=== PATIENT | male | born 1950 | race Caucasian/White ===

== ENCOUNTER → 2024-01-12 12:43 | Outpatient (REF) | payer MEDICARE, OTHER, SELFPAY | LOC: HWRCS 12:43 | PROVIDERS: ATTENDING PHYSICIAN Internal Medicine Cardiovascular Disease; FAMILY PHYSICIAN Family Medicine | DX: I10 Essential (primary) hypertension (principal); Z98.890 Other specified postprocedural states; I48.19 Other persistent atrial fibrillation | CPT/HCPCS: 93306 ==

== ENCOUNTER → 2024-05-01 17:05 | Outpatient (REF) | payer MEDICARE, OTHER, SELFPAY | LOC: HWRAD 17:05 | PROVIDERS: ATTENDING PHYSICIAN Family Medicine | DX: M54.42 Lumbago with sciatica, left side (principal) | CPT/HCPCS: 72110 ==

== ENCOUNTER → 2024-09-18 11:46 | Outpatient (REF) | payer MEDICARE, OTHER, SELFPAY | LOC: HWRAD 11:46 | PROVIDERS: ATTENDING PHYSICIAN Family Medicine | DX: J40 Bronchitis, not specified as acute or chronic (principal) | CPT/HCPCS: 71046 ==

== ENCOUNTER → 2025-01-15 09:46 | Outpatient (REF) | payer MEDICARE, OTHER, SELFPAY | LOC: HWRAD 09:46 | PROVIDERS: ATTENDING PHYSICIAN Family Medicine | DX: N28.1 Cyst of kidney, acquired (principal) | CPT/HCPCS: 74176 ==

== ENCOUNTER → 2025-01-23 06:24 | Outpatient (REF) | payer MEDICARE, OTHER, SELFPAY | LOC: RAD 06:24 | PROVIDERS: ATTENDING PHYSICIAN Family Medicine; REFERRING PHYSICIAN Internal Medicine Cardiovascular Disease | DX: I77.811 Abdominal aortic ectasia (principal) | CPT/HCPCS: 76770 ==

== ENCOUNTER → 2025-03-21 16:17 | Outpatient (REF) | payer MEDICARE, OTHER, SELFPAY | LOC: RAD 16:17 | PROVIDERS: ATTENDING PHYSICIAN Family Medicine | DX: H81.13 Benign paroxysmal vertigo, bilateral (principal) | CPT/HCPCS: 70496; 70498; Q9967 ==

== ENCOUNTER → 2025-04-02 14:52 | Outpatient (REF) | payer MEDICARE, OTHER, SELFPAY | LOC: HWRCS 14:52 | PROVIDERS: ATTENDING PHYSICIAN Internal Medicine Cardiovascular Disease; FAMILY PHYSICIAN Family Medicine | DX: I34.0 Nonrheumatic mitral (valve) insufficiency (principal) | CPT/HCPCS: 93306 ==

== ENCOUNTER 2025-04-13 07:32 | Day surgery (SDC) | payer MEDICARE, OTHER, SELFPAY | END 2025-04-13 10:44 | disposition home or self-care (01) | LOC: CATH 07:32 | PROVIDERS: ATTENDING PHYSICIAN Student in an Organized Health Care Education/Training Program; FAMILY PHYSICIAN Family Medicine; OTHER PHYSICIAN Internal Medicine Cardiovascular Disease | DX: I48.19 Other persistent atrial fibrillation (principal); I08.3 Combined rheumatic disorders of mitral, aortic and tricuspid valves; R91.8 Other nonspecific abnormal finding of lung field; I10 Essential (primary) hypertension; Z79.01 Long term (current) use of anticoagulants; Z79.899 Other long term (current) drug therapy | CPT/HCPCS: 93312; 93320; 93325 ==

== ENCOUNTER 2025-05-04 10:29 | Day surgery (SDC) | payer MEDICARE, OTHER, SELFPAY ==
[2025-05-04] VITALS (8 sets, daily range): BP systolic 123–147; BP diastolic 54–79; BMI 30.3
[2025-05-04] MEDS: LOW STRENGTH ASPIRIN 324 MG PO (11:21)
[2025-05-04] MEDS: NSS 272 ML IV (11:23)
--- NOTE | 2025-05-04 15:22 | ITS.CL.PN ---
Garment Sewer Hand - Procedure Note
Procedure
Procedure Note:
CARDIAC CATHETERIZATION REPORT
Date of Procedure: 05/04/2025
Referring: Dr. Cristopher Porras MD
Indication: pre-operative evaluation ahead of planned mitral valve surgery
PROCEDURE(S)
1. right heart catheterization
2. left heart catheterization
3. coronary angiography
ACCESS:
1. 6F right radial artery (closure: radial band)
2. 5F right brachial vein (closure: manual hemostasis)
CATHETERS
1. 5F balloon wedge
2. 6F JR4
3. 6F JL4
MODERATE SEDATION: 25 minutes of moderate sedation was utilized. An independent medical economics consultant was present to assist with and help manage the patient's level of consciousness and physiologic status.
HEMODYNAMIC DATA
LV 127/3 (EDP 10) mmHg
AO 133/73 (mean 96) mmHg
RA 7 mmHg
RV 37/-1 (EDP 4) mmHg
PA 29/11 (mean 20) mmHg
PCWP 12 mmHg
SaO2 93.9%
SvO2 70.5%
Hb 12.7 g/dL
CO/CI 6.32/3.09 L/min/m2
SVR 1127 dsc*-5
PVR 101 Wood units
CORONARY ANGIOGRAPHY
Dominance: right
LM: large, normal
LAD: large vessel giving rise to a large D1. There is a focal 40% stenosis just after the D1 takeoff. There is otherwise mild diffuse disease.
LCx: large vessel giving rise to a small ramus/OM1, small OM2, large OM3, and several small RPL branches. There are trivial luminal irregularities only.
RCA: moderate caliber vessel giving rise to a moderate caliber RPDA. There is a smooth 30% stenosis in the mid-vessel and otherwise mild disease only.
RADIATION: dose 229 mGy; DAP 14 Gy*cm2; fluoroscopy time 3.2 min
CONCLUSIONS
1. non-obstructive coronary artery disease in a right dominant system
2. normal biventricular filling pressures, normal pulmonary pressure, and normal cardiac index
3. no aortic stenosis on hemodynamic pullback
RECOMMENDATIONS
1. proceed with mitral valve surgery
2. aggressive secondary prevention of coronary artery disease
Copy to: Dr. Liza Mars MD (chemist pharmaceutical); Dr. Cristopher Porras MD (cardiac surgeon)
Signed: Bebo Mills MD, PhD
[2025-05-04] MEDS: NSS 1000 IV (16:05)
== END 2025-05-04 18:11 | disposition home or self-care (01) ==
LOC: CATH 10:29
PROVIDERS: ATTENDING PHYSICIAN Student in an Organized Health Care Education/Training Program; FAMILY PHYSICIAN Family Medicine; OTHER PHYSICIAN Internal Medicine Cardiovascular Disease
DX: I25.10 Atherosclerotic heart disease of native coronary artery without angina pectoris (principal); Z79.01 Long term (current) use of anticoagulants; I34.0 Nonrheumatic mitral (valve) insufficiency; I48.0 Paroxysmal atrial fibrillation; Z79.899 Other long term (current) drug therapy
CPT/HCPCS: 99152; 99153; 93460; C1769; C1894; Q9967

== ENCOUNTER → 2025-05-07 16:04 | Outpatient (REF) | payer MEDICARE, OTHER, SELFPAY | LOC: RAD 16:04 | PROVIDERS: ATTENDING PHYSICIAN Thoracic Surgery (Cardiothoracic Vascular Surgery); FAMILY PHYSICIAN Family Medicine | DX: I34.0 Nonrheumatic mitral (valve) insufficiency (principal) | CPT/HCPCS: 71275; 74174; Q9967 ==

== ENCOUNTER 2025-05-18 05:15 | Inpatient (IN) | payer MEDICARE, OTHER, SELFPAY ==
[2025-05-02 12:24] VITALS: BMI 29.6
[2025-05-02 13:04] LABS: Urine Character Slightly Cloudy (Clear)
[2025-05-02 13:05] LABS: Hematocrit 40.6 % (39.0-52.0); Hemoglobin 13.6 g/dL (13.0-18.0); Mean Corp Hgb Conc. 33.5 g/dL (33.0-37.0); Mean Corpuscular Volume 94.6 fL (80.0-94.0); Nucleated Red Blood Cells % 0 % (-); Platelet Count 140 10^3/uL (130-400); Red Cell Dist. Width 13.9 % (11.5-14.5)
[2025-05-02 13:18] LABS: ALT (SGPT) 29 U/L (0-50); AST (SGOT) 28 U/L (17-59); Albumin 4.6 g/dl (3.5-5.0); Alkaline Phosphatase 37 U/L (38-126); Blood Urea Nitrogen 18 mg/dl (9-20); Calcium 9.6 mg/dl (8.4-10.2); Carbon Dioxide 26 mmol/L (22-30); Chloride 105 mmol/L (98-107); Estimated Creatinine Clearance 70 ml/min; Glucose 89 mg/dl (70-99); INR 1.09; PT 14.7 Sec (11.4-14.6); Potassium 4.3 mmol/L (3.5-5.1); Sodium 140 mmol/L (135-145); Total Protein 7.3 g/dl (6.3-8.2); eGFR > 60.00
[2025-05-02 14:00] LABS: Glycohemoglobin (HgbA1c) 5.2 % (4.0-5.9)
--- NOTE | 2025-05-02 15:23 | CM ---
spoke to pt and in PAT's, we discussed preop MVR restrictions including sternal and lifting restrictions. he is prev indep, lives with his in a ranch home with no steps to enter. he has a CPAP at home he uses nightly and will bring in his
own mask. he has the CT Surgery educ book, soap and instructions. he is agreeable to a f/u visit from the ct transitional care nurses after dc. plan is for MVR 05/18, cm role explained and all questions answered.
[2025-05-18 05:18] VITALS: BP 118/100
[2025-05-18 05:20] VITALS: BP 145/79
[2025-05-18 05:23] VITALS: BP 149/70
[2025-05-18 05:24] VITALS: BP 152/75
[2025-05-18 05:25] VITALS: BMI 29.1
[2025-05-18] MEDS: PROTONIX 40 MG PO (05:43)
[2025-05-18] MEDS: BACTROBAN 2% OINTMENT 1 APPLIC NASAL ×2 (05:43→20:14)
[2025-05-18] MEDS: MAGNESIUM OXIDE 400 MG PO (05:43)
[2025-05-18] MEDS: LOPRESSOR 12.5 MG PO (05:57)
--- NOTE | 2025-05-18 06:02 | W.CVOR.SURPR ---
CVOR Surgeon Immed Pre Op
-
I have examined this patient prior to performance of the scheduled procedure.
The patient's condition is unchanged from the time of the dictated/written History and
Physical and the patient is able to undergo the scheduled procedure.
REDO mitral repair/replacement, MAZE, LAAE
--- NOTE | 2025-05-18 06:04 | PTCARENOTE ---
patient arrived in CVICU for per op SDS with Dr. Porras. Mitral Valve repair or replacement. Patient preped and clipped , CHG wipes bath completed. medications given as ordered for pre op, Ancef sent to CVOR. patient admission assessment completed
and oriented to unit. BP taken in both arms and patient weighted,VSS, NOP since 1900 05/17/2025.
[2025-05-18 07:32] LABS: ACT+ - POC 101 Seconds (82-134)
--- NOTE | 2025-05-18 08:00 | CM ---
Reviewed chart. MR. Flores was in the operating room today. Prior to admission he resides with his spouse in a one story home with three steps to enter. Prior to admission he was independent with ambulation and adls. He has a CPAP Machine at
home.Medical work-up in progress. The discharge plan is to return home with his spouse and a home visit by the Transitional Care Nurse when medically stable.
[2025-05-18 08:16] LABS: Urine Character Clear (Clear)
[2025-05-18 08:24] LABS: Urine Squamous Cell 0-2 /LPF (Few)
[2025-05-18 08:26] LABS: Urine Red Blood Cell 0-2 /HPF (0-2); Urine White Cell 0-2 /HPF (0-5)
[2025-05-18 08:45] LABS: ACT+ - POC 557 Seconds (82-134)
[2025-05-18 09:07] LABS: ACT+ - POC 559 Seconds (82-134)
[2025-05-18 09:39] LABS: ACT+ - POC 546 Seconds (82-134)
[2025-05-18 09:47] LABS: B.E. - POC -1.6 mmol/L; Glucose - POC 94 mg/dl (70-99); HCO3 - POC 24 mmol/L (21-28); Hematocrit - POC 32 % PCV (42-52); Hemodilution- POC No; Hemoglobin Calculated - POC 10.8; Ionized Calcium - POC 1.25 mmol/L (1.15-1.33); Lactate - POC 0.83 mmol/L (0.36-0.75); O2 Saturation %Calculated-POC 99.5 % (94-98); PCO2 - POC 43 mmHg (35-48); PO2 - POC 180 mmHg (83-108); POC Comment PRE; Potassium - POC 3.7 mmol/L (3.5-5.1); Sodium - POC 137 mmol/L (136-145); Specimen Type - POC Arterial; pH - POC 7.36 (7.35-7.45)
[2025-05-18 09:55] LABS: ACT+ - POC 507 Seconds (82-134)
[2025-05-18 10:20] LABS: B.E. - POC 3.1 mmol/L; Glucose - POC 133 mg/dl (70-99); HCO3 - POC 28 mmol/L (21-28); Hematocrit - POC 31 % PCV (42-52); Hemodilution- POC Yes; Hemoglobin Calculated - POC 10.6; Ionized Calcium - POC 1.05 mmol/L (1.15-1.33); Lactate - POC 1.27 mmol/L (0.36-0.75); O2 Saturation %Calculated-POC 100.0 % (94-98); PCO2 - POC 43 mmHg (35-48); PO2 - POC 494 mmHg (83-108); POC Comment CPB; Potassium - POC 4.4 mmol/L (3.5-5.1); Sodium - POC 136 mmol/L (136-145); Specimen Type - POC Arterial; pH - POC 7.42 (7.35-7.45)
[2025-05-18 10:28] LABS: ACT+ - POC 491 Seconds (82-134)
[2025-05-18 10:48] LABS: B.E. - POC 1.0 mmol/L; Glucose - POC 155 mg/dl (70-99); HCO3 - POC 25 mmol/L (21-28); Hematocrit - POC 32 % PCV (42-52); Hemodilution- POC Yes; Hemoglobin Calculated - POC 10.7; Ionized Calcium - POC 1.02 mmol/L (1.15-1.33); Lactate - POC 1.83 mmol/L (0.36-0.75); O2 Saturation %Calculated-POC 100.0 % (94-98); PCO2 - POC 36 mmHg (35-48); PO2 - POC 385 mmHg (83-108); POC Comment CPB; Potassium - POC 5.0 mmol/L (3.5-5.1); Sodium - POC 136 mmol/L (136-145); Specimen Type - POC Arterial; pH - POC 7.45 (7.35-7.45)
[2025-05-18 10:55] LABS: ACT+ - POC 477 Seconds (82-134)
[2025-05-18 11:07] LABS: ACT+ - POC 546 Seconds (82-134)
[2025-05-18 11:16] LABS: B.E. - POC 0.9 mmol/L; Glucose - POC 160 mg/dl (70-99); HCO3 - POC 25 mmol/L (21-28); Hematocrit - POC 33 % PCV (42-52); Hemodilution- POC Yes; Hemoglobin Calculated - POC 11.1; Ionized Calcium - POC 1.08 mmol/L (1.15-1.33); Lactate - POC 1.87 mmol/L (0.36-0.75); O2 Saturation %Calculated-POC 99.9 % (94-98); PCO2 - POC 36 mmHg (35-48); PO2 - POC 273 mmHg (83-108); POC Comment CPB; Potassium - POC 4.0 mmol/L (3.5-5.1); Sodium - POC 138 mmol/L (136-145); Specimen Type - POC Arterial; pH - POC 7.44 (7.35-7.45)
[2025-05-18 11:27] LABS: ACT+ - POC 563 Seconds (82-134)
[2025-05-18 11:50] LABS: B.E. - POC -1.5 mmol/L; Glucose - POC 133 mg/dl (70-99); HCO3 - POC 24 mmol/L (21-28); Hematocrit - POC 33 % PCV (42-52); Hemodilution- POC Yes; Hemoglobin Calculated - POC 11.3; Ionized Calcium - POC 1.12 mmol/L (1.15-1.33); Lactate - POC 2.83 mmol/L (0.36-0.75); O2 Saturation %Calculated-POC 99.9 % (94-98); PCO2 - POC 44 mmHg (35-48); PO2 - POC 318 mmHg (83-108); Potassium - POC 3.3 mmol/L (3.5-5.1); Sodium - POC 141 mmol/L (136-145); Specimen Type - POC Arterial; pH - POC 7.35 (7.35-7.45)
[2025-05-18 11:59] LABS: ACT+ - POC 540 Seconds (82-134)
[2025-05-18 12:25] LABS: B.E. - POC -1.7 mmol/L; Glucose - POC 131 mg/dl (70-99); HCO3 - POC 24 mmol/L (21-28); Hematocrit - POC 30 % PCV (42-52); Hemodilution- POC Yes; Hemoglobin Calculated - POC 10.2; Ionized Calcium - POC 1.09 mmol/L (1.15-1.33); Lactate - POC 3.32 mmol/L (0.36-0.75); O2 Saturation %Calculated-POC 99.9 % (94-98); PCO2 - POC 45 mmHg (35-48); PO2 - POC 357 mmHg (83-108); Potassium - POC 3.4 mmol/L (3.5-5.1); Sodium - POC 141 mmol/L (136-145); Specimen Type - POC Arterial; pH - POC 7.34 (7.35-7.45)
[2025-05-18 12:35] LABS: B.E. - POC -5.0 mmol/L; Glucose - POC 143 mg/dl (70-99); HCO3 - POC 21 mmol/L (21-28); Hematocrit - POC 30 % PCV (42-52); Hemodilution- POC Yes; Hemoglobin Calculated - POC 10.1; Ionized Calcium - POC 1.20 mmol/L (1.15-1.33); Lactate - POC 3.57 mmol/L (0.36-0.75); O2 Saturation %Calculated-POC 84.1 % (94-98); PCO2 - POC 39 mmHg (35-48); PO2 - POC 52 mmHg (83-108); POC Comment POST; Potassium - POC 3.0 mmol/L (3.5-5.1); Sodium - POC 140 mmol/L (136-145); Specimen Type - POC Arterial; pH - POC 7.33 (7.35-7.45)
[2025-05-18 12:42] LABS: ACT+ - POC 115 Seconds (82-134)
--- NOTE | 2025-05-18 13:11 | W.PN.CT.SURG ---
CT Surgery Operative Note
-
CARDIAC SURGERY OPERATIVE REPORT
Preoperative Diagnosis: Recurrent Mitral Regurgitation, Symptomatic
Postoperative Diagnosis: Same
Procedure(s) Performed:
1. Reoperative Right mini thoracotomy with Right Axillary Arterial Cannulation via 8mm graft and Percutaneous Access to RCFV
2. Radical mitral valve re-repair (Explant of prior 32 Ring, Triangular Resection of P2, Implant of 30mm Band Annuloplasty, Placement of 4 Goretex [2 to AL and 2 to PL])
3. Placement temporary ventricular pacing wires
4. Trans esophageal echocardiography
5. Left Atrial Cryo MAZE and LAAE via suture closed
6. Attempted cut down of bilateral groins but unable to thread wire for arterial access and so resorted to axillary cannulation
7. Extensive adhesiolysis, Modifier 22 - added 1 hour to the case
Date of Surgery: 05/18/25
Comorbidities:
1. Previous mitral valve repair with recurrent severe mitral valve insufficiency, symptomatic
2. New paroxysmal atrial relation symptomatic
3. Hypertension
4. Hyperlipidemia
5. Glaucoma
6. Moderately severe pulmonary hypertension
Attending Surgeon: Cristopher Porras MD, MS
Assistants: Marianela Thompson PA-C (present and necessary for retraction, suctioning, exposure, suture management, wound closure, etc. under my direction), Daina Valverde MD, MPH (did portions of the mitral valve repair)
Anesthesiology: Stevie Blue MD and Lucia Mar CRNA
Scrub and Circulating RNs: Lela Ballesteros, RN, Fernando Saavedra RN
Shredder Picker: Paulette Mirza CCP
Anesthesia: GETA
EBL: per perfusion records
Products: None, just Cell Saver
CPB Time: 152 minutes
Aortic Cross Clamp Time: 117 minutes
Indication(s) for Procedures: This is a 74-year-old elevated underwent previous mitral valve repair in 2014. He had recent recurrence of his symptoms and was found to have recurrent mitral valve insufficiency that was severe and was symptomatic.
He also developed into the new atrial relation. He was offered surgical intervention as well as maze and left atrial appendage exclusion.
Mitral Valve Description: Thickening about the anterior posterior leaflets, the anterior leaflet was shortened and scarred towards the free margin. There is also some retracted cords. The posterior leaflet was extremely tall with a billowing P2
that was also thickened.
Implants:
1. 30 mm Alexander physio flex band annuloplasty, SN [id number]
2. Total of 4 CV 4 Vicco-Fredo sutures
3. 1 CV 3 Vicco-Fredo suture
4. Multiple 5-0 Prolene's
Specimen:
1. Old Goretex Chord
Findings: His left ventricular ejection fraction preoperatively 60% with no significant regional wall motion abnormality. He had significant prolapse of the P2 P3 segment with eccentric anterior directed mitral valve insufficiency. The anterior
could also appear to be somewhat restricted and scarred at the free margin and shortened cords. Following surgery his left ventricular ejection fraction was 60% with no new regional wall motion abnormalities. He did have some hypoxia that took
some time to recover from post pump run. He has mitral valve was repaired, modifier 22 here because it required additional hour of dissection time around the aorta and intrapericardial he in order to access the mitral valve. Additionally even
though he had good bilateral cutdowns, I could not access his arteries with the wire easily as it only went in approximately 10 cm. Given this I converted to an axillary cutdown and sewed 8 mm graft to the right axillary artery and instituted
antegrade cardio pulmonary bypass that way. The previous mitral valve ring was explanted, the P2 scallop was resected in a triangular fashion and reapproximated primarily. A total of 4 pairs of Vicco-Fredo sutures were placed with 2 to the anterior
and 2 to the posterior leaflets, a new 30 mm band was then secured into place using a total of 9 nonpledgeted 2 Ethibond sutures placed circumferentially and secured with core knots. A full left atrial ablation was performed using cryo and the left
atrial appendage was sewn shut with CV 3 Vicco-Fredo suture and secured with a single core knot. Of note the left atrial appendage was verified to be free of any thrombus or debris preoperatively and found to be totally occlusive postoperatively with
no residual flow. At the inclusion of the case, there was a trace to mild degree of residual mitral valve insufficiency and a mean gradient of 4 across the mitral valve on the with dobutamine he did become hyperdynamic with a cardiac index of
greater than 3 and the mean gradient did increase to approximately 6. He did not require any blood product. Cardiac index was below 3 on low-dose Dobutrex.
Description of Procedure: The patient was brought to the operating room and placed supine in the table with their right side bumped up and right arm down. Arterial and central access was performed by anesthesiology. The patient was prepped from chin
to toes in the typical sterile fashion. Trans esophageal evaluation of cardiac function and all valvular structures was conducted. Before commencing, a time out was performed by all members of the team. All were in agreement with the procedure and
laterality and I proceeded. A small right groin incision was made to expose the common femoral artery and vein. A 5-6 cm right lateral muscle sparing thoracotomy sweeping the pec major muscle cephalad at the serratus anterior was performed over the
4th intercostal space verified by visualization of the hilum. A total of 60,000units of heparin was given. I initially attempted to cannulate the right common femoral artery using open Seldinger technique however the wire was only able to be
threaded approximately 10 cm and I did not visualize it in the descending thoracic aorta and so this was abandoned. I did cannulate the common femoral vein this way though without any issues using MATIAS guidance. I then cut down the left common
femoral artery and also attempted to cannulate this way again meeting resistance at approxi-10 to 15 cm. I then opted to cut down his right axillary artery and swept his brachial plexus side and placed Vesseloops distally approximately and
performed a small arteriotomy and sewed an 8 mm graft to this artery and used my 19 [place] arterial cannula via the graft for arterial access. The arterial line was verified to have an appropriate bounce and pressure correlating with testing. Once
the ACT was above 400, retrograde autologous priming was done and we commenced cardiopulmonary bypass. Target core temperature was 34�C.
Carbon dioxide was used to flood the field. The course of the phrenic nerve was identified to prevent injury. Ethibond suture was then placed along the parenchyma retracted cephalad and anteriorly. I then incised the pericardium and using an Endo
Kitner as well as electrocautery to free the pericardium from the right atrium. The pericardium was opened and two stay sutures were placed to facilitate a ``pericardial table.�� The oblique sinus was developed followed by the inter atrial groove.
The aorta was fairly scarred in to the pericardium and this was dissected and the posterior and anterior aspects were freed up. I had enough to place the clamp across the aorta. An antegrade root vent was inserted and secured with a pursestring
suture. The pump flow and mean arterial pressure were lowered and an aortic cross clamp was applied to the ascending aorta. A total of 1.2L initial dose of Antegrade cardioplegia was delivered. We had rapid electro myocardial quiescence at 400 cc of
cardioplegia. The ventricle was monitored for distension by echocardiogram during this time. I had to reposition the clamp as I realized that it was not totally occlusive and so additional dissection was then performed while the flows were slightly
lowered for approximately 20 seconds and the clamp was then replaced father across the aorta with better results. Additional cardioplegia was then given to a total of 800 cc with rapidly arrested approximately 150 to 200 cc. The left atrium was
incised and enlarged. A left atrial lift retractor was placed. The mitral valve was inspected. The mitral valve was repaired as described above. A maze was performed using cryo the left atrial appendage was sewn shut. The left atriotomy was closed
with 3-0 prolene in a running fashion leaving a ventricular vent in place to de-air. After filling the heart, the vent was removed and the prolene was secured with a corknot. Unipolar ventricular pacing wire was placed on the base of the right
ventricle. The patient was placed into Trendelenburg position and pump flows were lowered. The clamp was slowly removed with the root vent turned on. De-airing maneuvers were performed. We started to rewarm with a target of 36.5�C.
As the heart recovered, the mitral valve and ventricular function were assessed under transesophageal echocardiogram. The LV vent and root vents were removed. Once weaning parameters were satisfactory, cardiopulmonary bypass flow was lowered until
we were off cardiopulmonary bypass the mitral valve was inspected again. All surgical sites were inspected for hemostasis and appeared appropriate. The root vent and the pericardium was approximated with 2-0 ethibond sutures secured with corknots.
The lines were clamped and the arterial was relocated to the venous cannula to give back volume. A test dose of protamine was delivered and patient was monitored for any adverse reactions followed by complete protamine dosing. The femoral vessels
were decannulated and repaired as indicated. One 19F Jhony drain remained in the pleural space and threaded into the pericardium. All access sites were then closed in multiple layers. Local analgesia was injected to the thoracotomy. The incision
was closed in layers in a running fashion.
All instrument, sponge, and needle counts were confirmed to be correct x 2 at the end of the operation. The patient was transferred to the cardiac intensive care unit in critical but stable condition.
I, Dr. Cristopher Porras, was present, scrubbed for, and performed all critical elements of this procedure.
Cristopher Porras MD, MS
Cardiothoracic Surgeon
[facility]
This dictation was created using the [employer] dictation system. Please excuse any grammatical, typographical, or 'sound alike' errors
[2025-05-18 13:13] LABS: B.E. - POC -5.1 mmol/L; Glucose - POC 135 mg/dl (70-99); HCO3 - POC 21 mmol/L (21-28); Hematocrit - POC 27 % PCV (42-52); Hemodilution- POC Yes; Hemoglobin Calculated - POC 9.3; Ionized Calcium - POC 1.11 mmol/L (1.15-1.33); Lactate - POC 2.94 mmol/L (0.36-0.75); O2 Saturation %Calculated-POC 93.8 % (94-98); PCO2 - POC 40 mmHg (35-48); PO2 - POC 76 mmHg (83-108); POC Comment POST; Potassium - POC 2.8 mmol/L (3.5-5.1); Sodium - POC 140 mmol/L (136-145); Specimen Type - POC Arterial; pH - POC 7.32 (7.35-7.45)
[2025-05-18 13:21] LABS: B.E. - POC -6.2 mmol/L; Glucose - POC 123 mg/dl (70-99); HCO3 - POC 21 mmol/L (21-28); Hematocrit - POC 31 % PCV (42-52); Hemodilution- POC Yes; Hemoglobin Calculated - POC 10.5; Ionized Calcium - POC 1.22 mmol/L (1.15-1.33); Lactate - POC 3.09 mmol/L (0.36-0.75); O2 Saturation %Calculated-POC 99.1 % (94-98); PCO2 - POC 47 mmHg (35-48); PO2 - POC 158 mmHg (83-108); POC Comment POST; Potassium - POC 3.1 mmol/L (3.5-5.1); Sodium - POC 141 mmol/L (136-145); Specimen Type - POC Arterial; pH - POC 7.26 (7.35-7.45)
[2025-05-18 14:01] LABS: Glucose - Point of Care 146 mg/dl (70-99)
--- NOTE | 2025-05-18 14:01 | W.PN.UPDATE ---
Update Note
Progress Note Update
34-year-old male admitted on 05/24/2025 for a redo mitral valve surgery due to severe MR after a mitral valve repair in 2014.
IV fluids: 1000
U.O.:� 600
Blood:� 500cc cell saver
Wires:� V-wire
Drips: Levophed @ 6, Insulin, Precedex
�
NEURO: sedated, pupils +2mm B/L
RESP: #8OT @24cm> 500/60%/14/8. Lungs clear B/L. R pleural (0cc on arrival) chest tubes to -20cm suction. Sanguineous drainage
CV: RRR +S1, S2, no S3, no�rub, no murmur. Dermabond to right anterior thoracotomy, axillary cannulation and B/L femoral attempted cannulation sites. +ecchymosis @ axillary cannulation site>pressure dressing intact. LIJ w/[place] locked @ 58cm. PA
42/17; CVP 5; C.O 5.58/CI 2.67
ABD: round, soft, no BS
EXT: no edema, +2/4 DP pulses B/L, no femoral bruit, XX radial A-line intact
: Hwang with clear yellow urine
�
A/P: POD #0 s/p reoperative right mini thoracotomy with Right Axillary Arterial Cannulation via 8mm graft and Percutaneous Access to RCFV, radical mitral valve re-repair (Explant of prior 32 Ring, Triangular Resection of P2, Implant of 30mm Band
Annuloplasty, Placement of 4 Goretex [2 to AL and 2 to PL]), Left Atrial Cryo MAZE and LAAE via suture closed, extensive adhesiolysis
MAITAS: report pending
- wean and extubate
- will need instruction regarding antibiotic prophylaxis for dental and invasive procedures
- maintain SBP 90-110mmHg tonight
- will need preDC TTE
- insulin x 24h
- pressure dressing to right axiliary cannulation site
�
# acute surgical blood loss anemia-expected
- trend CBC
�
�# Hx PAF
- on Eliquis/ASA/metoprolol at home
- currently SR
# Hx chronic dissection involving infrarenal abdominal aorta
- vascular checks
# Glaucoma
- continue home eye drops
# BPH
- resume Flomax as BP permits
�
# Hyperlipidemia
- resume�Zocor
[2025-05-18] MEDS: LR 250 ML IV ×4 (14:03→18:06)
[2025-05-18] MEDS: DILAUDID 0.5 MG IV ×2 (14:05→17:01)
[2025-05-18] MEDS: ANCEF 10 IV ×2 (14:06)
[2025-05-18] MEDS: NEURONTIN PO ×2 (14:06→16:02)
[2025-05-18] MEDS: NOVOLOG FLEXPEN SC ×2 (14:06→16:21)
[2025-05-18] MEDS: NSS 500 IV (14:07)
[2025-05-18] MEDS: TYLENOL PO ×2 (14:08→22:42)
[2025-05-18 14:11] LABS: B.E. -5.1 mmol/L; HCO3 21.2 mmol/L (21-28); O2 Saturation % 99.0 % (94-98); PCO2 43 mmHg (35-48); PO2 112 mmHg (83-108); Potassium 3.7 mMOL/L (3.5-5.1); Sodium 138 mMOL/L (136-145)
[2025-05-18 14:14] LABS: Hematocrit 36.6 % (39.0-52.0); Hemoglobin 12.2 g/dL (13.0-18.0); Platelet Count 98 10^3/uL (130-400)
[2025-05-18 14:22] LABS: Blood Urea Nitrogen 18 mg/dl (9-20); Estimated Creatinine Clearance 70 ml/min; Glucose 126 mg/dl (70-99); Magnesium 3.0 mg/dl (1.6-2.3)
[2025-05-18 14:24] LABS: APTT 30.8 Sec (23.4-35.0); INR 1.58; PT 19.1 Sec (11.4-14.6)
--- NOTE | 2025-05-18 14:32 | W.PN.CD ---
Today's Communication / Plan
-
routine post op care
Impression / Plan
-
74 year old man with prior MV repair s/p recurrent severe MR now POD0 s/p redo MV repair (Porras: reoperative right mini thoracotomy w/ R ax arterial cannulation, radical mitral valve re-repair (Explant of prior 32 Ring, Triangular Resection of P2,
Implant of 30mm Band Annuloplasty, Placement of 4 Goretex [2 to AL and 2 to PL]), MAZE+JAMES clip). Of note, attempted cut down of bilateral groins but unable to thread wire for arterial access and so resorted to axillary cannulation.
Currently intubated and sedated. Doing well with normal filling pressures and output on norepi 5: PA 42/17, CVP 5, CO/CI 5.58/2.67. PA pressure improved post op.
Plan:
# severe MR s/p redo MV repair
- routine post op care
- wean noerpi for goal SBP goal 90-110 per CTS
- extubate
# Afib
- resume AC when safe from post operative standpoint
# HTN - resume home antihypertensives as able
# HLD - resume home simvastatin
Physical Exam
Vital Signs/Labs
Vital Signs
Temp Pulse Resp BP Pulse Ox
35.3 C L 69 25 118/100 97
05/18/25 14:23 05/18/25 14:15 05/18/25 14:15 05/18/25 05:57 05/18/25 14:15
05/17/25 05/18/25 05/19/25
06:59 06:59 06:59
Actual Weight 89.3 kg
05/18/25 13:53
PT 14.7 Sec (11.4-14.6) H 05/02/25 12:21
INR 1.09 05/02/25 12:21
Magnesium 3.0 mg/dl (1.6-2.3) H 05/18/25 13:53
Physical Exam
Constitutional: Other (intubated and sedated)
Cardiovascular: Rhythm & rate is regular, Pedal edema is absent and Systolic murmur absent
chest wall sites intact
Data Reviewed
-
Date of Service: May 18, 2025
Medical Decision Making: Reviewed Test Results
EKG: Tracing Personally Visualized and interpreted
Echo: Tracing Personally Visualized and interpreted
X-Ray/CT/US/MRI/NUC/PET: Image Personally Visualized and interpreted
Labs: Labs Reviewed by me
--- NOTE | 2025-05-18 14:40 | CON.INTV ---
Consultation
Consultation Request
Date/Time Consultation Requested: 05/18/2025 - 1253
Date/Time Consultation Performed: 05/18/2025 - 2
Requesting Provider: YUMIKO Lamb
Performing Provider: Dr. Deleon
Reason for Consultation: MV re-repair + cryoablation MAZE + ELAA
Medical History
-
Chief Complaint: Elective MV re-repair
History of Present Illness:
74-year-old male with a past medical history of mitral valve regurgitation, paroxysmal A-fib with history of ablation (09/2022) on Eliquis, JUHI on CPAP, hypercholesterolemia, glaucoma, history of colonic mass s/p resection, chronic neck + back pain
and mitral valve repair (April 2015) who presents for elective mitral valve repeat repair. Patient known to the cardiothoracic surgery service with initial visit on 04/30/[address] Porras. Patient underwent sternotomy with mitral valve repair
in 2014. He has since developed recurrent mitral valve insufficiency. Most recent echo was on 04/13/2025 via a MATIAS, showing preserved LVEF at 60-65% with no regional WMA, with moderate�severe, eccentric anteromedially directed mitral regurgitation
with Coanda effect, with systolic blunting of pulmonary venous inflow, with mild AI � findings were similar to prior transthoracic echo on 04/02/2025. Patient had a right and left heart catheterization on 05/04/2025 showing nonobstructive CAD with
normal biventricular filling pressures, preserved cardiac index and normal pulmonary pressures. Also no aortic stenosis on hemodynamic pullback. Patient has moderate fatigue almost daily with moderate shortness of breath with exertion, and
dizziness after bending over. He feels like his breathing has gotten worse over the last year. He does remain active and is independent. Cardiothoracic surgery recommended a repeat repair of his mitral valve as well as a cryoablation maze
procedure and JAMES exclusion. Today, patient underwent reoperative right minithoracotomy with radical mitral valve re� repair with a left atrial cryoablation maze and left atrial appendage exclusion via suture closed as well as extensive
adhesiolysis. There were no complications postoperatively and the patient was transferred to CVICU for further care. Curriculum And Assessment Director service consulted for additional management/recommendations.
When I saw the patient, he was resting in bed, intubated on SIMV at 16/500/60%/5, with PIP 23 cmH2O, VTe 408 mL and breathing at 16 breaths/min. Heart rate 66, BP via A-line: 96/48, PAP 37/15, CO/CI: 5.58/2.67, respectively, with SpO2 98%.
Currently on Levophed at 5 mcg/min, insulin drip at 3.5 units/hr and sedated on Precedex at 0.5 mcg/kg/hr. Right pleural chest tube x [address]
PMHx: Glaucoma, hypercholesterolemia, JUHI on CPAP, history of colonic mass (May 2022) s/p resection (July 2022), aortic regurgitation, chronic neck + back pain, mitral valve repair (April 2015), paroxysmal A-fib s/p ablation (09/2022) on
Eliquis
PSHx: MV repair (Dr. Monsalve � 04/2015), laser eye surgery, vasectomy, right ureteroscopy with laser lithotripsy and stone extraction with placement of right double-J ureteral stent (09/2015), tonsillectomy, colonoscopy, heart ablation (09/2022), colon
mass removed (07/2022), epidural
Past Medical History
Past Medical History: Other (Above as per HPI)
Past Surgical History: Other (Above as per HPI)
Social History
Tobacco: Former Smoker (Quit 1975 with 10-yefu-brac history)
Alcohol: Occasional (Socially (2 beers per week))
Drug: None
Personal:
Living: With Family
Employment: Retired (Fleet maintenance)
Family History
Family History: Cancer (Mother: Colon cancer) and Other (Father: of suicide)
Allergies / Home Medications
Allergies
Allergy/AdvReac Type Severity Reaction Status Date / Time
pollen extracts Allergy seasonal Verified 05/18/25 06:01
allergies
Home Medications
�Medication �Instructions �Recorded �Confirmed �Last Taken �Type
metoprolol tartrate 25 mg tablet 12.5 mg (1/2 x 25 mg) PO BID #60 05/04/15 05/18/25 05/17/25 Rx
tabs 12.5
simvastatin 20 mg tablet 20 mg PO HS High Cholesterol 05/01/25 05/18/25 05/17/25 19:00 History
apixaban 5 mg tablet (Eliquis) 5 mg PO BID Blood clot 05/04/25 05/18/25 05/14/25 Rx
prevention/tx #0 tabs 5
aspirin 81 mg capsule 81 mg PO DAILY Blood clot 05/04/25 05/18/25 05/17/25 Rx
prevention/tx #0 caps 81
brimonidine 0.15 % eye drops 1 drp ophthalmic (eye) Q8H Eye 05/04/25 05/18/25 05/17/25 Rx
(Alphagan P) condition #0 mL 1
cholecalciferol (vitamin D3) 25 25 mcg PO DAILY Supplement #0 caps 05/04/25 05/18/25 05/10/25 10:00 Rx
mcg (1,000 unit) capsule (Vitamin 1
D3)
latanoprost 0.005 % eye drops 1 drp ophthalmic (eye) HS Eye 05/04/25 05/18/25 05/17/25 Rx
condition #0 mL 1
magnesium oxide 400 mg PO DAILY Supplement #0 tabs 05/04/25 05/18/25 05/14/25 Rx
multivitamin 1 tab PO DAILY Supplement #0 tabs 05/04/25 05/18/25 05/10/25 Rx
1
tamsulosin 0.4 mg capsule 0.4 mg PO HS Urinary issue #0 caps 05/04/25 05/18/25 05/04/25 20:00 Rx
zinc acetate 50 mg (zinc) capsule 50 mg PO DAILY Supplement #0 caps 05/04/25 05/18/25 05/10/25 10:00 Rx
Review of Systems
-
Unable to Obtain full review of systems at this time due to: Patient Intubation
Vitals / Labs / Diagnostic Testing
Vital Signs
Temp Pulse Resp BP Pulse Ox
96 F L 66 23 118/100 95
05/18/25 15:00 05/18/25 15:00 05/18/25 15:00 05/18/25 05:57 05/18/25 15:34
Lab Data
05/18/25 13:53
Laboratory Results
05/18/25
13:53
PT 19.1 H
INR 1.58
APTT 30.8
pH 7.30 L
pCO2 43
pO2 112 H
HCO3 21.2
O2 Delivery Level Not Reportable
Diagnostic Testing:
Physical Exam
-
HEENT: Normocephalic, Anicteric and Other (ETT in place)
Cardiovascular: S1/S2 and Peripheral Edema (negative)
Respiratory: Wheeze (negative), Rhonchi (negative), Non-Labored Respirations, Other (Mechanical breath sounds heard bilaterally) and Other (Right pleural chest tube x 1)
GI: Soft, Non Distended, Non Tender and Normal Bowel Sounds
Neurology: Tremors (negative) and Other (Sedated)
Skin: Warm, Dry and Other (Multiple horizontal incisions across the right anterior chest + bilateral femoral regions)
General: Respiratory Distress (negative), Comfortable, Chills (negative) and Sweats (negative)
Assessment
-
Assessment: 74-year-old male with a past medical history of mitral valve regurgitation, paroxysmal A-fib with history of ablation (09/2022) on Eliquis, JUHI on CPAP, hypercholesterolemia, glaucoma, history of colonic mass s/p resection, chronic neck
+ back pain and mitral valve repair (April 2015) who presents for elective mitral valve repeat repair. Patient known to the cardiothoracic surgery service with initial visit on 04/30/[address] Porras. Patient underwent sternotomy with mitral
valve repair in 2014. He has since developed recurrent mitral valve insufficiency. Most recent echo was on 04/13/2025 via a MATIAS, showing preserved LVEF at 60-65% with no regional WMA, with moderate�severe, eccentric anteromedially directed mitral
regurgitation with Coanda effect, with systolic blunting of pulmonary venous inflow, with mild AI � findings were similar to prior transthoracic echo on 04/02/2025. Patient had a right and left heart catheterization on 05/04/2025 showing
nonobstructive CAD with normal biventricular filling pressures, preserved cardiac index and normal pulmonary pressures. Also no aortic stenosis on hemodynamic pullback. Patient has moderate fatigue almost daily with moderate shortness of breath
with exertion, and dizziness after bending over. He feels like his breathing has gotten worse over the last year. He does remain active and is independent. Cardiothoracic surgery recommended a repeat repair of his mitral valve as well as a
cryoablation maze procedure and JAMES exclusion. On 05/18/2025, patient underwent re-operative right mini-thoracotomy with radical mitral valve re�repair with a left atrial cryoablation MAZE and left atrial appendage exclusion via suture closed as
well as extensive adhesiolysis. There were no complications postoperatively and the patient was transferred to CVICU for further care. Curriculum And Assessment Director service consulted for additional management/recommendations.
Chronic conditions FISHER: Glaucoma, hypercholesterolemia, JUHI on CPAP, history of colonic mass (May 2022) s/p resection (July 2022), aortic regurgitation, chronic neck + back pain, mitral valve repair (April 2015), paroxysmal A-fib s/p
ablation (09/2022) on Eliquis
Impression:
#Recurrent symptomatic mitral regurgitation s/p reoperative right minithoracotomy with radical mitral valve re-repair and extensive adhesiolysis � POD #0
#Paroxysmal atrial fibrillation with history of ablation (09/2022) now s/p left atrial cryoablation MAZE and left atrial appendage exclusion via suture closed � POD #0
#Acute anemia due to above
#Chronic thrombocytopenia
#Hypertension
#Hyperlipidemia
#Glaucoma
#Pulmonary hypertension (moderate�severe)
Plan:
Ventilator settings reviewed
FiO2 will be weaned to maintain SpO2 >90-94%
Minute ventilation will be adjusted
Arterial blood gases will be monitored
Spontaneous breathing trial will be attempted with hopeful extubation after anesthesia/sedation wear off
prn nebulized bronchodilators - not currently bronchospastic
Pulmonary artery catheter parameters will be followed
Pressors/antihypertensive/inotropes/diuretics will be provided as needed
Maintain MAP>65
Replete electrolytes with K>4, Mg>2
Monitor chest tube output
Monitor hemoglobin
Monitor platelet count and coags
Transfuse blood products as needed to maintain Hb>7g/dL, plt>50k (given post-operative status)
CT surgery managing chest tubes (right pleural chest tube x 1
Monitor blood sugar to maintain euglycemia with goal BG 110-140
Insulin drip per protocol
Aspiration precautions
VAP prevention protocol
DVT prophylaxis
Early nutrition
Early mobilization
Critical care statement: A total of 42 minutes of critical care time was provided for this patient today. This includes management of ventilator, spontaneous breathing trial, arterial blood gases, pressors, of unstable vital signs, evaluation of the
patient at bedside, reviewing the patient's pertinent medical records including radiographs, microbiology, laboratory evaluations, and discussion with primary team and critical care nursing.
[2025-05-18] MEDS: DILAUDID 0.25 MG IV ×2 (14:48→17:45)
--- NOTE | 2025-05-18 14:57 | PTCARENOTE ---
received pt from [facility] sedated and intubated post procedure. placed on vent by TALENT ACQUISITION SPECIALIST. NSR. V wires present to back up rate 40/10. NSR. HR 60s. CTx1 R lateral to -20 wall suction draining red. no airleaks. Hwang draining clear yellow urine. pulses
palpable no edema. All surgical sites intaact. surg sites on R chest x2 echymottic. Usual lines. labs drawn and sent. ekg and cxr done. will continue to monitor.
[2025-05-18 14:58] LABS: Glucose - Point of Care 160 mg/dl (70-99)
[2025-05-18] MEDS: KCL 50 IV ×2 (15:13→15:59)
[2025-05-18] MEDS: CALCIUM GLUCONATE 100 IV ×2 (15:20→21:15)
--- NOTE | 2025-05-18 15:56 | PTCARENOTE ---
placed on CPAP wean by COIL WINDER REPAIR.
[2025-05-18] MEDS: PACERONE PO (16:16)
[2025-05-18 16:38] LABS: Glucose - Point of Care 132 mg/dl (70-99)
[2025-05-18 16:46] LABS: B.E. -4.8 mmol/L; HCO3 20.5 mmol/L (21-28); O2 Saturation % 99.3 % (94-98); PCO2 38 mmHg (35-48); PO2 102 mmHg (83-108); Potassium 4.4 mMOL/L (3.5-5.1)
[2025-05-18 16:55] LABS: Hematocrit 34.6 % (39.0-52.0); Hemoglobin 11.4 g/dL (13.0-18.0); Platelet Count 93 10^3/uL (130-400)
--- NOTE | 2025-05-18 16:57 | PTCARENOTE ---
extubated to 6Lnc with SERVICE CORRESPONDENT. pulse ox 97%, 750 LR given.
[2025-05-18 17:42] LABS: Glucose - Point of Care 116 mg/dl (70-99)
[2025-05-18 18:07] LABS: Glucose - Point of Care 118 mg/dl (70-99)
[2025-05-18 18:23] LABS: B.E. -5.4 mmol/L; HCO3 20.0 mmol/L (21-28); O2 Saturation % 98.7 % (94-98); PCO2 38 mmHg (35-48); PO2 94 mmHg (83-108); Potassium 5.3 mMOL/L (3.5-5.1); Sodium 136 mMOL/L (136-145)
[2025-05-18] MEDS: SODIUM BICARBONATE 50 MEQ IV (19:19)
--- NOTE | 2025-05-18 20:00 | PTCARENOTE ---
Assumed care of patient at 1900. Patient found resting in bed at time of assessment. Patient is AOx4, follows commands appropriately, moves all extremities. Lung sounds are clear and equal bilaterally, respirations are somewhat shallow, saO2 96% on
2L via NC, R lateral CT present draining red sanguineous to on atrium. Heart sounds are audible, patient is SR on the monitor, no observable edema, all pulses are present and palpable. Patient has v wires with VVI settings 40/10/0.8. Patient has
hypoactive BS throughout all four quadrants of soft nontender abdomen and humphreys catheter draining clear yellow urine. Patient has R upper chest incision approx with surg adhesive with hematoma pressure dressing CDI, R lateral chest incision approx
with surg adhesive COMPOSITION MIXER ecchymotic, R lateral CT wound with 4x4 gauze dressing CDI, and bilateral groin incisions approx with surg adhesive ROMANA ecchymotic around site. L IJ cordis with swan floated to 55cm, L danny, and R hand 20G PIV. Patient on
Levo@4 and insulin gtt col 2. VSS. Call wilcox within reach.
[2025-05-18] MEDS: ANCEF 5 IV (20:13)
[2025-05-18] MEDS: OFIRMEV 100 IV (20:13)
[2025-05-18] MEDS: SENOKOT 8.6 MG PO (20:14)
[2025-05-18 20:38] LABS: B.E. -2.2 mmol/L; HCO3 22.4 mmol/L (21-28); O2 Saturation % 98.2 % (94-98); PCO2 37 mmHg (35-48); PO2 86 mmHg (83-108); Potassium 5.0 mMOL/L (3.5-5.1)
[2025-05-18 20:39] LABS: Glucose - Point of Care 132 mg/dl (70-99)
[2025-05-18 22:39] LABS: Glucose - Point of Care 122 mg/dl (70-99)
[2025-05-18] MEDS: PACERONE 200 MG PO (22:40)
[2025-05-18] MEDS: NEURONTIN 100 MG PO (22:40)
[2025-05-18] MEDS: ROXICODONE 5 MG PO (22:41)
[2025-05-18] MEDS: XALATAN OPHTHALMIC SOLUTION 1 DROP OPHTH (22:43)
[2025-05-18 23:40] LABS: Glucose - Point of Care 112 mg/dl (70-99)
[2025-05-19] VITALS (28 sets, daily range): BP systolic 94–129; BP diastolic 50–88; PULSE 76; O2SAT 91–95; BMI 29.9
--- NOTE | 2025-05-19 | PTCARENOTE ---
Patient reassessed. Remains SR on the monitor. ABG obtained. Calcium repleted. Ofirmev x1, Teresa x1 for pain management. Call wilcox within reach.
[2025-05-19 00:47] LABS: Glucose - Point of Care 114 mg/dl (70-99)
[2025-05-19 01:53] LABS: Glucose - Point of Care 103 mg/dl (70-99)
[2025-05-19] MEDS: LEVOPHED 250 IV (02:00)
[2025-05-19] MEDS: DILAUDID 0.5 MG IV (02:12)
[2025-05-19 03:11] LABS: Glucose - Point of Care 111 mg/dl (70-99)
[2025-05-19 03:29] LABS: Hematocrit 31.3 % (39.0-52.0); Hemoglobin 10.4 g/dL (13.0-18.0); Mean Corp Hgb Conc. 33.2 g/dL (33.0-37.0); Mean Corpuscular Volume 94.3 fL (80.0-94.0); Platelet Count 86 10^3/uL (130-400); Red Cell Dist. Width 13.9 % (11.5-14.5)
[2025-05-19 04:03] LABS: Blood Urea Nitrogen 22 mg/dl (9-20); Calcium 8.6 mg/dl (8.4-10.2); Carbon Dioxide 26 mmol/L (22-30); Chloride 107 mmol/L (98-107); Estimated Creatinine Clearance 70 ml/min; Glucose 103 mg/dl (70-99); Magnesium 2.3 mg/dl (1.6-2.3); Potassium 4.8 mmol/L (3.5-5.1); Sodium 135 mmol/L (135-145); eGFR > 60.00
--- NOTE | 2025-05-19 04:41 | PTCARENOTE ---
Patient reassessed. Levo tapered to 2. AM labs obtained. AM hygiene care provided. Dilaudid 0.25 X1 for pain. EKG in AM showing SR with first deg AV block and PACs. Call wilcox within reach.
[2025-05-19] MEDS: ANCEF 5 IV ×2 (05:03→12:06)
[2025-05-19 05:59] LABS: Glucose - Point of Care 103 mg/dl (70-99)
[2025-05-19] MEDS: TYLENOL 975 MG PO ×3 (06:12→22:48)
[2025-05-19] MEDS: ZOFRAN 4 MG IV (06:20)
[2025-05-19] MEDS: FLEXERIL 5 MG PO (06:43)
--- NOTE | 2025-05-19 07:16 | PTCARENOTE ---
Hwang out. [place] out. Anila to be maintained d/t labile pressures. Attempted oob patient nauseous while sitting giving zofran symptoms resolved. Upon standing patient became dizzy lightheaded low BPs returned to bed. Flexeril administered for muscle
spasms.
[2025-05-19] MEDS: NOVOLOG FLEXPEN SC (07:35)
[2025-05-19 07:39] LABS: Glucose - Point of Care 118 mg/dl (70-99)
--- NOTE | 2025-05-19 08:20 | W.PN.INTV ---
Today's Communication / Plan
Recommendations
Postoperative management as per CT surgery
Removal of right pleural chest tube x 1 per cardiothoracic team
Pain control
Up OOB as tolerated; cardiac rehab
Encourage incentive spirometer
Continue insulin drip per protocol, with goal BG 110�140
Tie Bucker service will continue to follow along. Once patient weaned off insulin drip and transferred to CVICU�telemetry status, then we will sign off at that time.
Assessment
-
Assessment: 74-year-old male with a past medical history of mitral valve regurgitation, paroxysmal A-fib with history of ablation (09/2022) on Eliquis, JUHI on CPAP, hypercholesterolemia, glaucoma, history of colonic mass s/p resection, chronic neck
+ back pain and mitral valve repair (April 2015) who presents for elective mitral valve repeat repair. Patient known to the cardiothoracic surgery service with initial visit on 04/30/[address] Porras. Patient underwent sternotomy with mitral
valve repair in 2014. He has since developed recurrent mitral valve insufficiency. Most recent echo was on 04/13/2025 via a MATIAS, showing preserved LVEF at 60-65% with no regional WMA, with moderate�severe, eccentric anteromedially directed mitral
regurgitation with Coanda effect, with systolic blunting of pulmonary venous inflow, with mild AI � findings were similar to prior transthoracic echo on 04/02/2025. Patient had a right and left heart catheterization on 05/04/2025 showing
nonobstructive CAD with normal biventricular filling pressures, preserved cardiac index and normal pulmonary pressures. Also no aortic stenosis on hemodynamic pullback. Patient has moderate fatigue almost daily with moderate shortness of breath
with exertion, and dizziness after bending over. He feels like his breathing has gotten worse over the last year. He does remain active and is independent. Cardiothoracic surgery recommended a repeat repair of his mitral valve as well as a
cryoablation maze procedure and JAMES exclusion. On 05/18/2025, patient underwent re-operative right mini-thoracotomy with radical mitral valve re�repair with a left atrial cryoablation MAZE and left atrial appendage exclusion via suture closed as
well as extensive adhesiolysis. There were no complications postoperatively and the patient was transferred to CVICU for further care. Tie Bucker service consulted for additional management/recommendations.
Chronic conditions CRIMINAL LEGAL ASSISTANT: Glaucoma, hypercholesterolemia, JUHI on CPAP, history of colonic mass (May 2022) s/p resection (July 2022), aortic regurgitation, chronic neck + back pain, mitral valve repair (April 2015), paroxysmal A-fib s/p
ablation (09/2022) on Eliquis
Impression:
#Recurrent symptomatic mitral regurgitation s/p reoperative right minithoracotomy with radical mitral valve re-repair and extensive adhesiolysis � POD #1
#Paroxysmal atrial fibrillation with history of ablation (09/2022) now s/p left atrial cryoablation MAZE and left atrial appendage exclusion via suture closed � POD #1
#Acute anemia due to above
#Chronic thrombocytopenia
#Hypertension
#Hyperlipidemia
#Glaucoma
#Pulmonary hypertension (moderate�severe)
Plan:
Patient was successfully extubated on 05/18/2025, and is now breathing comfortably on 2 L/min nasal cannula, saturating 89-90%
Continue wean down supplemental O2 as tolerated while maintaining SpO2 >90-94%
prn nebulized bronchodilators - not currently bronchospastic
Encourage incentive spirometer use q1hr while awake
Pulmonary artery catheter parameters will be followed
Pressors/antihypertensive/inotropes/diuretics will be provided as needed
Maintain MAP>65
Replete electrolytes with K>4, Mg>2
Monitor chest tube output
Monitor hemoglobin
Monitor platelet count and coags
Transfuse blood products as needed to maintain Hb>7g/dL, plt>50k (given post-operative status)
CT surgery managing chest tubes (right pleural chest tube x 1)
Monitor blood sugar to maintain euglycemia with goal BG 110-140
Insulin drip per protocol
Aspiration precautions
DVT prophylaxis
Early nutrition
Early mobilization
Tie Bucker service will continue to follow along. Once patient weaned off insulin drip and transferred to CVICU�telemetry status, then we will sign off at that time.
Critical care statement: A total of 37 minutes of critical care time was provided for this patient today. This includes management of ventilator, spontaneous breathing trial, arterial blood gases, pressors, of unstable vital signs, evaluation of the
patient at bedside, reviewing the patient's pertinent medical records including radiographs, microbiology, laboratory evaluations, and discussion with primary team and critical care nursing.
Subjective Dataa
Subjective Data
Date of Service:
Date of Service: May 19, 2025
Chief Complaint: Tie Bucker Follow Up
Subjective:
Patient seen and evaluated this morning. Currently on insulin drip at 7 units/hr. Saturating 89% on 2 L/min nasal cannula with heart rate 72 and BP 101/53. He has generalized achiness and his buttocks hurt but no chest pain or shortness of
breath, STEWART, nausea, fevers or chills reported.
Review of Systems
General: Other (Negative unless mentioned above)
Objective Data
Data Reviewed
Vital Signs / I&O / Oxygen:
Vital Signs
Temp Pulse Resp BP Pulse Ox
98.8 F 67 20 129/54 90
05/19/25 06:00 05/19/25 10:00 05/19/25 10:00 05/19/25 09:10 05/19/25 09:30
Intake and Output
05/18/25 05/19/25 05/20/25
06:59 06:59 06:59
Intake Total 2104.4 / 2123.7 43.5 / 43.5
Output Total 1375 / 1390
Balance 729.4 / 733.7 28.5 / 28.5
SaO2 [CPAP] 96
SaO2 [P-SIMV] 97
SaO2 90
Nasal Cannula flow liters per 2
minute
Physical Exam
General: Respiratory Distress (negative), Comfortable and Chills (negative)
HEENT: Normocephalic and Anicteric
Cardiovascular: S1-S2, Regular Rhythm and Peripheral Edema (negative)
Respiratory: Wheeze (negative), Crackles (negative), Rhonchi (negative), Non-Labored Respirations and Chest Tube (right pleural chest tube x 1)
GI: Soft, Non Distended and Normal Bowel Sounds
Neurology: Awake, Alert, Oriented and Tremors (negative)
Skin: Warm, Dry, Cyanosis (negative) and Jaundice (negative)
Labs/Micro/Reports
Lab Data
05/19/25 03:11
05/19/25 03:11
Laboratory Results
05/18/25 05/18/25 05/18/25
13:53 16:33 17:58
PT 19.1 H
INR 1.58
APTT 30.8
pH 7.30 L 7.34 L 7.33 L
pCO2 43 38 38
pO2 112 H 102 94
HCO3 21.2 20.5 L 20.0 L
O2 Delivery Level Not Reportable
05/18/25
20:32
PT
INR
APTT
pH 7.39
pCO2 37
pO2 86
HCO3 22.4
O2 Delivery Level
--- NOTE | 2025-05-19 09:01 | W.PN.CT ---
Today's Communication / Plan
-
-pod #1
-no issues overnight
-felt dizzy when got out of bed. Hg 10.4 this am- monitor
-CI 3.44, CO 7.18, SVR 906. Drips: Insulin, Levo 2
-CT output: R pleur 190/360 in 12/24 hrs
-deline
-d/c insulin
-d/c Hwang
-current meds (ASA, Amio, Lopressor, Flomax, Protonix). Eventually, restart Eliquis for PAF
-encourage IS, OOB
Assessment / Plan
-
- Recurrent symptomatic Mitral Regurgitation- s/p Reoperative Right mini thoracotomy; Radical mitral valve re-repair (Explant of prior 32 Ring, Triangular Resection of P2, Implant of 30mm Alexander Band Annuloplasty, Placement of 4 Goretex [2 to AL
and 2 to PL]); Left Atrial Cryo MAZE and LAAE via suture closed by Dr. Porras on 05/18/25, pod #1
- Intraop MATIAS: LVEF preop and postop was 60% with no significant regional wall motion abnormality.
- Previous mitral valve repair in 2014 with recurrent severe mitral valve insufficiency, symptomatic
- New paroxysmal atrial fibrillation, symptomatic- on Eliquis preop
- Hypertension
- Hyperlipidemia
- Glaucoma
- Moderately severe pulmonary hypertension
- Acute postop blood loss anemia
- Acute postop thrombocytopenia
- Acute postop atelectasis
- Acute postop hypovolemia with subsequent hypervolemia
Discussed patient care with: Nursing and Care Team
Subjective
-
Date of Service: May 19, 2025
Objective Data
-
PT 19.1 Sec (11.4-14.6) H 05/18/25 13:53
INR 1.58 05/18/25 13:53
APTT 30.8 Sec (23.4-35.0) 05/18/25 13:53
Vital Signs
Vital Signs
Temp Pulse Resp BP Pulse Ox
99.1 F 64 20 118/100 93
05/19/25 00:00 05/18/25 22:50 05/19/25 00:00 05/18/25 05:57 05/19/25 00:00
CT Intake/Output/Weight
05/18/25 05/18/25 05/19/25
06:59 18:59 06:59
Intake Total 1318.1 / 1880.4 562.3 / 1880.4
Output Total 585 / 1025 440 / 1025
Balance 733.1 / 855.4 122.3 / 855.4
SaO2: 93
Physical Exam
-
General: Awake and AOx3
Cardiovascular: Regular rate & rhythm, No Murmurs and No Rub
Respiratory: Decreased Breath Sounds
Sternum: Stable
Incision: Clean, Dry and Intact
Extremities: No Edema (2+ DPs)
Abdomen: soft, nontender, nondistended, + bowel sounds
Data Reviewed
-
Lab Results: Results Reviewed
Medications: Active Meds Reviewed
Chest X-Ray: Report Reviewed and Image Reviewed
ECG: Report Reviewed and Image Reviewed
[2025-05-19] MEDS: SENOKOT 8.6 MG PO ×2 (09:10→19:56)
[2025-05-19] MEDS: PACERONE 200 MG PO ×3 (09:10→22:48)
[2025-05-19] MEDS: LIDOCAINE 4% PATCH 1 PATCH TOPICAL (09:11)
[2025-05-19] MEDS: LOW STRENGTH ASPIRIN 81 MG PO (09:11)
[2025-05-19] MEDS: NEURONTIN 100 MG PO ×3 (09:11→22:47)
[2025-05-19] MEDS: LOPRESSOR 12.5 MG PO ×2 (09:11→19:56)
[2025-05-19] MEDS: MAGNESIUM OXIDE 400 MG PO ×2 (09:11→19:56)
[2025-05-19] MEDS: PROTONIX 40 MG PO (09:11)
[2025-05-19] MEDS: FLOMAX 0.4 MG PO (09:11)
[2025-05-19] MEDS: BACTROBAN 2% OINTMENT 1 APPLIC NASAL ×2 (09:12→19:56)
[2025-05-19 09:45] LABS: Glucose - Point of Care 92 mg/dl (70-99)
--- NOTE | 2025-05-19 10:15 | PTCARENOTE ---
Pt AAOx4 Pleasant pt had an episode of dizziness when slot shift manager tried to get him to chair, Levophed was stopped and he was able to get up to the chair with X1 assist
[2025-05-19] MEDS: NOVOLOG FLEXPEN 4 UNITS SC (12:00)
[2025-05-19] MEDS: ROXICODONE 5 MG PO (12:05)
[2025-05-19 12:08] LABS: Glucose - Point of Care 220 mg/dl (70-99)
[2025-05-19 13:13] LABS: Glucose - Point of Care 165 mg/dl (70-99)
[2025-05-19] MEDS: NSS IV (13:45)
--- NOTE | 2025-05-19 13:47 | PTCARENOTE ---
Pt sitting comfortably in the chair, VS WNL, no new updates at this time
[2025-05-19] MEDS: FERRLECIT 110 MG IV (14:17)
[2025-05-19 15:51] LABS: Glucose - Point of Care 166 mg/dl (70-99)
[2025-05-19] MEDS: NOVOLOG FLEXPEN-LOW RESISTANCE 1 UNITS SC (16:11)
--- NOTE | 2025-05-19 18:09 | W.PN.ANS.POP ---
Anesthesia Post Operative
- Anesthesia Post Op Note
Vital Signs Stable-See Nursing Note: Yes
Airway Patent: Yes
Adequate Pain Control: Yes
Change in Mental Status: No
Current Postoperative Nausea & Vomiting: No
Anesthesia Complications: No
General Anesthetic Recall: No
Unplanned Admission: No
Post Op Hydration Adequate: Yes
- -
Pt awake and alert, OOB to chair with no anesthesia related c/o at time of post op visit.
--- NOTE | 2025-05-19 18:28 | PTCARENOTE ---
Pt voided 100ml but retained 160 CT surgery aware, pt spent time with family, VS WNL
[2025-05-19] MEDS: FLEXBUMIN 50 IV (19:55)
--- NOTE | 2025-05-19 20:00 | PTCARENOTE ---
Assumed care of patient at 1900. Patient found resting in bed at time at time of assessment. Patient is AOx4, follows commands appropriately, moves all extremities. Lung sounds are diminished in the bases, saO2 94% on 2L, one R lateral CT present
draining red sanguineous. Heart sounds are audible, patient is SR with first deg AV block on the montior. Active BS in all four quadrants and patient is voiding in the bathroom. Patient has R upper chest incision with hematoma that is notender and
dressed with pressure dressing, R lateral chest incision approx with surg adhesive PHARMACY BILLING ADJUDICATOR ecchymotic, R lateral CT wound with 4x4 gauze dressing CDI, and bilateral groin incisions approx with surg adhesive ROMANA ecchymotic. Patient has L IJ cordis
receiving KVO and R hand 18G PIV. Call wilcox within reach.
[2025-05-19] MEDS: REMOVE LIDOCAINE PATCH 1 PATCH REMOVE (20:02)
[2025-05-19] MEDS: XALATAN OPHTHALMIC SOLUTION OPHTH (23:12)
[2025-05-20] VITALS (14 sets, daily range): BP systolic 106–138; BP diastolic 45–94; BMI 30.4
--- NOTE | 2025-05-20 01:27 | W.PN.CT ---
Today's Communication / Plan
-
-pod #2
-no significant issues overnight
-hg is 8.7 (from 10.4) and platelets 66 (from 86)- suspect hemodilution after getting ivf postop and 25% albumin (repeat CBC was the same)
-held ASA- will resume if platelet count looks better tomorrow
-diurese if BP allows
-c/o chronic neck and back pain
-R arm mild discomfort/edema since cath 05/04- on Eliquis preop
-CT output: R pleur 110/225 in 12/24 hrs
-current meds (ASA, Amio, Lopressor, Flomax, Protonix). Eventually, restart Eliquis for PAF
-encourage IS, OOB
Assessment / Plan
-
- Recurrent symptomatic Mitral Regurgitation- s/p Reoperative Right mini thoracotomy; Radical mitral valve re-repair (Explant of prior 32 Ring, Triangular Resection of P2, Implant of 30mm Alexander Band Annuloplasty, Placement of 4 Goretex [2 to AL
and 2 to PL]); Left Atrial Cryo MAZE and LAAE via suture closed by Dr. Porras on 05/18/25, pod #2
- Intraop MATIAS: LVEF preop and postop was 60% with no significant regional wall motion abnormality.
- Previous mitral valve repair in 2015 with recurrent severe mitral valve insufficiency, symptomatic
- New paroxysmal atrial fibrillation, symptomatic- on Eliquis preop
- Hypertension
- Hyperlipidemia
- Glaucoma
- Moderately severe pulmonary hypertension
- Chronic dissection involving the infrarenal abdominal aorta, maximum AP dimension of 2.7 cm.
- Chronic neck and back pain with injections of lower back without relief recently
- Renal stones/ renal cysts b/l
- Acute postop blood loss anemia
- Acute postop thrombocytopenia
- Acute postop atelectasis
- Acute postop hypovolemia with subsequent hypervolemia
Discussed patient care with: Nursing and Care Team
Subjective
-
Date of Service: May 20, 2025
Objective Data
-
PT 19.1 Sec (11.4-14.6) H 05/18/25 13:53
INR 1.58 05/18/25 13:53
APTT 30.8 Sec (23.4-35.0) 05/18/25 13:53
Vital Signs
Vital Signs
Temp Pulse Resp BP Pulse Ox
99 F 79 20 122/54 94
05/19/25 23:00 05/19/25 21:30 05/19/25 23:00 05/19/25 20:00 05/19/25 23:00
CT Intake/Output/Weight
05/19/25 05/19/25 05/20/25
06:59 18:59 06:59
Intake Total 786.3 / 2123.7 620.2 / 630.2 10 / 630.2
Output Total 790 / 1390 215 / 645 430 / 645
Balance -3.7 / 733.7 405.2 / -14.8 -420 / -14.8
SaO2: 94
Physical Exam
-
General: Awake and AOx3
Cardiovascular: Regular rate & rhythm, No Murmurs and No Rub
Respiratory: Decreased Breath Sounds
Sternum: Stable
Incision: Clean, Dry and Intact
Abdomen: soft, nontender, nondistended, + bowel sounds
Extremities: No Edema (2+ DPs)
Data Reviewed
-
Lab Results: Results Reviewed
Medications: Active Meds Reviewed
Chest X-Ray: Report Reviewed and Image Reviewed
ECG: Report Reviewed and Image Reviewed
[2025-05-20] MEDS: FLEXBUMIN 50 IV ×2 (03:51→13:29)
[2025-05-20 04:27] LABS: Hematocrit 27.0 % (39.0-52.0); Hemoglobin 8.7 g/dL (13.0-18.0); Mean Corp Hgb Conc. 32.2 g/dL (33.0-37.0); Mean Corpuscular Volume 97.1 fL (80.0-94.0); Platelet Count 66 10^3/uL (130-400); Red Cell Dist. Width 14.4 % (11.5-14.5)
[2025-05-20 04:43] LABS: Blood Urea Nitrogen 23 mg/dl (9-20); Calcium 8.4 mg/dl (8.4-10.2); Carbon Dioxide 29 mmol/L (22-30); Chloride 105 mmol/L (98-107); Estimated Creatinine Clearance 57 ml/min; Glucose 111 mg/dl (70-99); Magnesium 2.3 mg/dl (1.6-2.3); Potassium 4.4 mmol/L (3.5-5.1); Sodium 136 mmol/L (135-145); eGFR > 60.00
[2025-05-20 06:32] LABS: Hematocrit 27.1 % (39.0-52.0); Hemoglobin 8.9 g/dL (13.0-18.0); Mean Corp Hgb Conc. 32.8 g/dL (33.0-37.0); Mean Corpuscular Volume 93.8 fL (80.0-94.0); Platelet Count 68 10^3/uL (130-400); Red Cell Dist. Width 14.2 % (11.5-14.5)
[2025-05-20] MEDS: TYLENOL 975 MG PO ×3 (06:43→21:34)
[2025-05-20] MEDS: LIDOCAINE 4% PATCH 1 PATCH TOPICAL (07:48)
[2025-05-20] MEDS: PROTONIX 40 MG PO (07:49)
[2025-05-20] MEDS: PACERONE 200 MG PO ×3 (07:50→21:33)
[2025-05-20] MEDS: NEURONTIN 100 MG PO ×3 (07:51→21:33)
[2025-05-20] MEDS: FLOMAX 0.4 MG PO (07:51)
[2025-05-20] MEDS: BACTROBAN 2% OINTMENT 1 APPLIC NASAL ×2 (07:52→20:06)
[2025-05-20] MEDS: MAGNESIUM OXIDE PO ×2 (07:52→08:07)
[2025-05-20] MEDS: LOPRESSOR 12.5 MG PO ×2 (07:52→20:05)
[2025-05-20] MEDS: SENOKOT 8.6 MG PO ×2 (07:52→20:05)
[2025-05-20] MEDS: NOVOLOG FLEXPEN-LOW RESISTANCE SC ×2 (07:59→12:27)
[2025-05-20 08:00] LABS: Glucose - Point of Care 120 mg/dl (70-99)
--- NOTE | 2025-05-20 08:14 | PTCARENOTE ---
Patient care assumed from nightshift RN. Patient OOB in chair, denies pain. Fully alert and oriented. Afebrile, temp 98.4F. NSR with 1st degree heart block, rate 70s. Pulses palpable in bilateral upper and lower extremities. Trace generalized edema
present, plan to diurese today. on 2LNC, sat 96%, denies shortness of breath. V-wire present on VVI 40/10/0.8. Chest tube present x1, -20cm h20 suction, serosanguineous drainage, 45cc output so far this shift, no tidaling or air leak present. Pt
having bowel movements and voiding without complication, bowel sounds +. Ambulation and IS encouraged. ROSETTA escobedo present with NSS KVO. Monitoring accuchecks, no coverage needed per sliding scale this a.m.
[2025-05-20] MEDS: LASIX 40 MG IV ×2 (09:26→20:05)
[2025-05-20] MEDS: ROXICODONE 5 MG PO ×2 (11:28→18:19)
[2025-05-20 12:25] LABS: Glucose - Point of Care 121 mg/dl (70-99)
[2025-05-20] MEDS: DDAVP 55 MCG IV (12:31)
[2025-05-20] MEDS: NSS 500 IV (13:28)
[2025-05-20] MEDS: FERRLECIT 110 MG IV (14:45)
--- NOTE | 2025-05-20 16:03 | PTCARENOTE ---
Lasix 40mg IV given, total urine output this shift so far 1075ml. Chest tube output 125ml. Ambulating to bathroom in room, well tolerated. Remains on 2LNC. VSS. Portable CXR completed @ 1400.
[2025-05-20] MEDS: NOVOLOG FLEXPEN-LOW RESISTANCE 2 UNITS SC (16:44)
[2025-05-20 16:45] LABS: Glucose - Point of Care 208 mg/dl (70-99)
[2025-05-20 17:03] LABS: Hematocrit 26.7 % (39.0-52.0); Hemoglobin 8.5 g/dL (13.0-18.0); Mean Corp Hgb Conc. 31.8 g/dL (33.0-37.0); Mean Corpuscular Volume 97.4 fL (80.0-94.0); Platelet Count 58 10^3/uL (130-400); Red Cell Dist. Width 14.5 % (11.5-14.5)
--- NOTE | 2025-05-20 20:00 | PTCARENOTE ---
Patient received from RN @ 1900. Patient sitting in chair w/ call wilcox in reach. AOx3. SR on monitor. BP 117/56 HR 75. Heart sounds audible. Radial and pedal pulses present. V-wire set to 40/10/0.8. No edema noted. POX 96% 2L NC. IS 1250.
Fine crackles noted in right base of lung. Right lateral chest tube set to -20 suction draining serosanguineous fluid. No crepitus, tidaling, or air leaks noted. Bowel sounds normoactive. Voiding clear yellow urine. Right lateral chest incision
well approximated soft non tender and ecchymotic. Pressure dressing dry and intact. Punctures well approximated RUFFLER. Right and left groing incisions well approximated RUFFLER. LIJ patent and intact. PIV patent and intact. See worklist for more
details.
[2025-05-20] MEDS: MAGNESIUM OXIDE 400 MG PO (20:04)
[2025-05-20] MEDS: REMOVE LIDOCAINE PATCH 1 PATCH REMOVE (20:06)
[2025-05-20] MEDS: XALATAN OPHTHALMIC SOLUTION OPHTH (21:51)
[2025-05-21] VITALS (9 sets, daily range): BP systolic 104–126; BP diastolic 50–65; PULSE 67; O2SAT 93–94; BMI 30.1
--- NOTE | 2025-05-21 00:04 | PTCARENOTE ---
Patient reassessed. Patient voiding in urinal at bedside. SR on monitor. BP 104/52 HR 68 POX 96% 2L NC.
--- NOTE | 2025-05-21 01:47 | W.PN.CT ---
Today's Communication / Plan
-
-pod #3
-no significant issues overnight
-hg is 8.0 (from 8.5) and platelets 64 (from 66)
-hold ASA- will resume when platelet count better
-diurese if BP allows
-c/o chronic neck and back pain
-R arm mild discomfort/edema since cath 05/04- on Eliquis preop
-CT output: R pleur 100/205 in 12/24 hrs
-current meds (ASA, Amio, Lopressor, Flomax, Protonix). Eventually, restart Eliquis for PAF
-encourage IS, OOB
-echo ordered for today.
Assessment / Plan
-
- Recurrent symptomatic Mitral Regurgitation- s/p Reoperative Right mini thoracotomy; Radical mitral valve re-repair (Explant of prior 32 Ring, Triangular Resection of P2, Implant of 30mm Alexander Band Annuloplasty, Placement of 4 Goretex [2 to AL
and 2 [address] PL]); Left Atrial Cryo MAZE and LAAE via suture closed by Dr. Porras on 05/18/25, pod #3
- Intraop MATIAS: LVEF preop and postop was 60% with no significant regional wall motion abnormality.
- Previous mitral valve repair in 2014 with recurrent severe mitral valve insufficiency, symptomatic
- New paroxysmal atrial fibrillation, symptomatic- on Eliquis preop
- Hypertension
- Hyperlipidemia
- Glaucoma
- Moderately severe pulmonary hypertension
- Chronic dissection involving the infrarenal abdominal aorta, maximum AP dimension of 2.7 cm.
- Chronic neck and back pain with injections of lower back without relief recently
- Renal stones/ renal cysts b/l
- Acute postop blood loss anemia
- Acute postop thrombocytopenia
- Acute postop atelectasis
- Acute postop hypovolemia with subsequent hypervolemia
Subjective
Procedure
s/p Reoperative Right mini thoracotomy; Radical mitral valve re-repair (Explant of prior 32 Ring, Triangular Resection of P2, Implant of 30mm Alexander Band Annuloplasty, Placement of 4 Goretex [2 to AL and 2 to PL]); Left Atrial Cryo MAZE and LAAE
via suture closed by Dr. Porras on 05/18/25
-
Date of Service: May 21, 2025
Objective Data
-
Lab Results
05/21/25 03:01
05/21/25 03:01
PT 19.1 Sec (11.4-14.6) H 05/18/25 13:53
INR 1.58 05/18/25 13:53
APTT 30.8 Sec (23.4-35.0) 05/18/25 13:53
Vital Signs
Vital Signs
Temp Pulse Resp BP Pulse Ox
98.6 F 67 15 104/52 94
05/21/25 03:21 05/21/25 00:00 05/21/25 03:21 05/21/25 00:00 05/21/25 03:21
CT Intake/Output/Weight
05/20/25 05/20/25 05/21/25
06:59 18:59 06:59
Intake Total 10 / 630.2 30 / 30
Output Total 1190 / 1405 1240 / 2765 1525 / 2765
Balance -1180 / -774.8 -1240 / -2735 -1495 / -2735
SaO2: 97
Physical Exam
-
General: AOx3
Cardiovascular: Regular rate & rhythm
Respiratory: Decreased Breath Sounds
Sternum: Stable
Incision: Clean, Dry and Intact
Extremities: Edema +1
--- NOTE | 2025-05-21 03:22 | PTCARENOTE ---
Patient reassessed. SR on monitor. BP 115/51 HR 68 POX 94% 2L NC. Patient voiding at bedside.
[2025-05-21 03:52] LABS: Hematocrit 23.7 % (39.0-52.0); Hemoglobin 8.0 g/dL (13.0-18.0); Mean Corp Hgb Conc. 33.8 g/dL (33.0-37.0); Mean Corpuscular Volume 97.1 fL (80.0-94.0); Platelet Count 64 10^3/uL (130-400); Red Cell Dist. Width 14.4 % (11.5-14.5)
[2025-05-21 04:35] LABS: Blood Urea Nitrogen 26 mg/dl (9-20); Calcium 8.8 mg/dl (8.4-10.2); Carbon Dioxide 31 mmol/L (22-30); Chloride 100 mmol/L (98-107); Estimated Creatinine Clearance 64 ml/min; Glucose 108 mg/dl (70-99); Magnesium 1.9 mg/dl (1.6-2.3); Potassium 3.9 mmol/L (3.5-5.1); Sodium 136 mmol/L (135-145); eGFR > 60.00
[2025-05-21] MEDS: KCL 50 IV (04:47)
[2025-05-21] MEDS: TYLENOL PO (06:47)
--- NOTE | 2025-05-21 08:34 | W.PN.CD ---
Today's Communication / Plan
-
ambulate
monitor plt
resume doac when coagulopathy stable
Impression / Plan
-
74 year old man with prior MV repair s/p recurrent severe MR now POD0 s/p redo MV repair (Porras: reoperative right mini thoracotomy w/ R ax arterial cannulation, radical mitral valve re-repair (Explant of prior 32 Ring, Triangular Resection of P2,
Implant of 30mm Band Annuloplasty, Placement of 4 Goretex [2 to AL and 2 to PL]), MAZE+JAMES clip). Of note, attempted cut down of bilateral groins but unable to thread wire for arterial access and so resorted to axillary cannulation.
Plan:
# severe MR s/p redo MV repair
-Radical mitral valve re-repair (Explant of prior 32 Ring, Triangular Resection of P2, Implant of 30mm Alexander Band Annuloplasty, Placement of 4 Goretex [2 to AL and 2 to PL]); Left Atrial Cryo MAZE and LAAE via suture closed by Dr. Porras on 05/18/25
- routine post op care
-post op thrombocytopemia noted, plts now rising again, low of 58
- CT in place, removal per CTSurgery
# Afib
-paroxysmal
-in NSR
-Amiodarone started
- resume AC when safe from post operative standpoint
# HTN - chronic
# HLD - resume home simvastatin on discharge
Physical Exam
Vital Signs/Labs
Vital Signs
Temp Pulse Resp BP Pulse Ox
98.6 F 67 15 107/50 94
05/21/25 03:21 05/21/25 05:30 05/21/25 03:21 05/21/25 04:00 05/21/25 05:30
05/20/25 05/21/25 05/22/25
06:59 06:59 06:59
Actual Weight 205 lb 11.06 oz 203 lb 7.787 oz
05/21/25 03:01
05/21/25 03:01
PT 19.1 Sec (11.4-14.6) H 05/18/25 13:53
INR 1.58 05/18/25 13:53
APTT 30.8 Sec (23.4-35.0) 05/18/25 13:53
Magnesium 1.9 mg/dl (1.6-2.3) 05/21/25 03:01
Physical Exam
Constitutional: No acute distress
Cardiovascular: Rhythm & rate is regular, Pedal edema is absent, JVD pressure is normal, Systolic murmur absent and Diastolic murmur absent
Respiratory: Respiratory effort normal, Lungs clear to auscul., Wheeze Absent, Crackles Absent and Rhonchi Absent
Neuro/Psych: AO x 3
Data Reviewed
-
Date of Service: May 21, 2025
Medical Decision Making: Review of Case with other Provider (DUANE Miller, plt improving)
[2025-05-21 09:38] LABS: Glucose - Point of Care 113 mg/dl (70-99)
[2025-05-21] MEDS: NOVOLOG FLEXPEN-LOW RESISTANCE SC ×2 (09:38→15:16)
[2025-05-21] MEDS: LOPRESSOR 12.5 MG PO ×2 (09:38→20:21)
[2025-05-21] MEDS: PACERONE 200 MG PO ×3 (09:38→21:31)
[2025-05-21] MEDS: NEURONTIN 100 MG PO ×3 (09:39→21:30)
[2025-05-21] MEDS: PROTONIX 40 MG PO (09:39)
[2025-05-21] MEDS: MAGNESIUM OXIDE 400 MG PO ×2 (09:39→20:22)
[2025-05-21] MEDS: BACTROBAN 2% OINTMENT 1 APPLIC NASAL ×2 (09:39→20:22)
[2025-05-21] MEDS: FLOMAX 0.4 MG PO (09:39)
[2025-05-21] MEDS: LIDOCAINE 4% PATCH 1 PATCH TOPICAL (09:40)
[2025-05-21] MEDS: SENOKOT 8.6 MG PO ×2 (09:41→20:22)
--- NOTE | 2025-05-21 11:39 | CM ---
Reviewed chart. Met with Mr. Flores to review discharge plans. He states he is feeling well and maybe able to go home soon. He states prior to admission he resides with his spouse in a one story home without any steps to enter. He states his
full bathroom is in the basement. He states he is planning on using the bathroom on the first floor until he is feeling better. He states prior to admission he was independent with ambulation and adls. He has a CPAP Machine at home. He states he
has a prescription plan with [facility]. We reviewed a home visit by the Transitional Care Nurse. He is agreeable to a home visit. Medical work-up in progress. The discharge plan is to return home with his spouse and a home visit by the
Transitional Care Nurse when medically stable.
--- NOTE | 2025-05-21 12:09 | PTCARENOTE ---
Pt received from shift superintendent RN. Ox3 and appropriate. He is motivated to recover, using IS unprompted and getting OOB to the chair first thing this morning. NSR on tele, + pulses. V wire insulated this morning. 94% on RA, R base diminished. R
lateral chest tube D/C'd. Pt using urinal without difficulty. No BM yet. R axillary incision intact with pressure dressing over the site, site is ecchymotic. BL groin sites intact. Pt walked up a flight of stairs with cardiac rehab, tolerated well.
After getting back into bed his L IJ cordis was removed. Pt now resting comfortably in bed, call wilcox within reach.
[2025-05-21] MEDS: NSS IV (13:13)
[2025-05-21] MEDS: TYLENOL 975 MG PO ×2 (14:48→21:30)
[2025-05-21] MEDS: FERRLECIT 110 MG IV (14:49)
[2025-05-21] MEDS: ROXICODONE 5 MG PO ×2 (14:49→22:02)
[2025-05-21] MEDS: ALPHAGAN 0.2% EYE DROPS 1 DROP OPHTH ×2 (14:49→20:22)
[2025-05-21 15:17] LABS: Glucose - Point of Care 120 mg/dl (70-99)
[2025-05-21 16:44] LABS: Glucose - Point of Care 168 mg/dl (70-99)
[2025-05-21] MEDS: NOVOLOG FLEXPEN-LOW RESISTANCE 1 UNITS SC (16:44)
[2025-05-21] MEDS: REMOVE LIDOCAINE PATCH 1 PATCH REMOVE (20:22)
--- NOTE | 2025-05-21 20:33 | PTCARENOTE ---
Patient received from RN @ 1900. Patient sitting in chair w/ call wilcox in reach. AOx3. SR on monitor. BP 126/58 HR 65. Heart sounds audible. Radial and pedal pulses present. V-wire insulated. No edema noted. POX 95% RA. IS 1250.
Diminished in bilateral bases. Bowel sounds normoactive. Voiding clear yellow urine. Right lateral chest incision well approximated soft non tender and ecchymotic. Pressure dressing dry and intact. Punctures well approximated ROMANA. Right and
left groing incisions well approximated DAIRY HUSBANDMAN. PIV patent and intact. See worklist for more details.
[2025-05-21] MEDS: XALATAN OPHTHALMIC SOLUTION 1 DROP OPHTH (21:32)
[2025-05-22] VITALS (8 sets, daily range): BP systolic 100–140; BP diastolic 43–97; PULSE 72; O2SAT 92–93
--- NOTE | 2025-05-22 00:34 | PTCARENOTE ---
Patient reassessed. Patient sleeping comfortably. sinus bradycardia on monitor. BP 100/43 HR 57 POX 96% 2L NC.
[2025-05-22 03:41] LABS: Hematocrit 26.9 % (39.0-52.0); Hemoglobin 8.7 g/dL (13.0-18.0); Mean Corp Hgb Conc. 32.3 g/dL (33.0-37.0); Mean Corpuscular Volume 97.5 fL (80.0-94.0); Platelet Count 76 10^3/uL (130-400); Red Cell Dist. Width 14.6 % (11.5-14.5)
--- NOTE | 2025-05-22 04:04 | PTCARENOTE ---
Patient reassessed. SR/sinus violette on monitor. BP 100/48 POX 96% 2L NC. Labs drawn.
[2025-05-22 04:11] LABS: Blood Urea Nitrogen 20 mg/dl (9-20); Calcium 8.8 mg/dl (8.4-10.2); Carbon Dioxide 31 mmol/L (22-30); Chloride 99 mmol/L (98-107); Estimated Creatinine Clearance 78 ml/min; Glucose 94 mg/dl (70-99); Magnesium 2.2 mg/dl (1.6-2.3); Potassium 4.1 mmol/L (3.5-5.1); Sodium 132 mmol/L (135-145); eGFR > 60.00
[2025-05-22] MEDS: FLEXERIL 5 MG PO (04:20)
[2025-05-22] MEDS: ALPHAGAN 0.2% EYE DROPS OPHTH (04:20)
--- NOTE | 2025-05-22 08:47 | W.PN.CT ---
Today's Communication / Plan
-
-pod #4
-no significant issues overnight
-platelets low, slightly improved from 64K to 76K today - holding ASA
-wt is 7 lbs up, Na 132- consider diuresis
-encourage IS, OOB, ambulate
Assessment / Plan
-
- Recurrent symptomatic Mitral Regurgitation- s/p Reoperative Right mini thoracotomy; Radical mitral valve re-repair (Explant of prior 32 Ring, Triangular Resection of P2, Implant of 30mm Alexander Band Annuloplasty, Placement of 4 Goretex [2 to AL
and 2 to PL]); Left Atrial Cryo MAZE and LAAE via suture closed by Dr. Porras on 05/18/25, pod #4
- Intraop MATIAS: LVEF preop and postop was 60% with no significant regional wall motion abnormality.
- Previous mitral valve repair in 2015 with recurrent severe mitral valve insufficiency, symptomatic
- New paroxysmal atrial fibrillation, symptomatic- on Eliquis preop
- Hypertension
- Hyperlipidemia
- Glaucoma
- Moderately severe pulmonary hypertension
- Chronic dissection involving the infrarenal abdominal aorta, maximum AP dimension of 2.7 cm.
- Chronic neck and back pain with injections of lower back without relief recently
- Renal stones/ renal cysts b/l
- Acute postop blood loss anemia
- Acute postop thrombocytopenia
- Acute postop atelectasis
- Acute postop hypovolemia with subsequent hypervolemia
Discussed patient care with: Nursing and Care Team
Subjective
Procedure
s/p Reoperative Right mini thoracotomy; Radical mitral valve re-repair (Explant of prior 32 Ring, Triangular Resection of P2, Implant of 30mm Alexander Band Annuloplasty, Placement of 4 Goretex [2 to AL and 2 to PL]); Left Atrial Cryo MAZE and LAAE
via suture closed by Dr. Porras on 05/18/25
-
Date of Service: May 22, 2025
Objective Data
-
Lab Results
05/22/25 03:30
05/22/25 03:30
PT 19.1 Sec (11.4-14.6) H 05/18/25 13:53
INR 1.58 05/18/25 13:53
APTT 30.8 Sec (23.4-35.0) 05/18/25 13:53
Vital Signs
Vital Signs
Temp Pulse Resp BP Pulse Ox
98.7 F 63 17 100/43 96
05/22/25 03:00 05/22/25 03:30 05/22/25 03:00 05/22/25 00:00 05/22/25 03:00
CT Intake/Output/Weight
05/21/25 05/22/25 05/22/25
18:59 06:59 18:59
Intake Total 960 / 1200 240 / 1200
Output Total 350 / 350 0 / 350
Balance 610 / 850 240 / 850
SaO2: 96
Physical Exam
-
General: Awake and AOx3
Cardiovascular: Regular rate & rhythm, No Murmurs and No Rub
Respiratory: Decreased Breath Sounds
Sternum: Stable
Incision: Clean, Dry and Intact
Extremities: No Edema
Abdomen: soft, nontender, nondistended
Data Reviewed
-
Lab Results: Results Reviewed
Medications: Active Meds Reviewed
Chest X-Ray: Report Reviewed and Image Reviewed
ECG: Report Reviewed and Image Reviewed
[2025-05-22] MEDS: SENOKOT 8.6 MG PO (09:27)
[2025-05-22] MEDS: PROTONIX 40 MG PO (09:27)
[2025-05-22] MEDS: FLOMAX 0.4 MG PO (09:27)
[2025-05-22] MEDS: NOVOLOG FLEXPEN-LOW RESISTANCE SC (09:30)
[2025-05-22 09:31] LABS: Glucose - Point of Care 111 mg/dl (70-99)
[2025-05-22] MEDS: PACERONE 200 MG PO ×2 (09:31→15:52)
[2025-05-22] MEDS: TYLENOL 975 MG PO ×2 (09:31→13:13)
[2025-05-22] MEDS: MAGNESIUM OXIDE 400 MG PO (09:31)
[2025-05-22] MEDS: LIDOCAINE 4% PATCH 1 PATCH TOPICAL (09:31)
[2025-05-22] MEDS: LOPRESSOR 12.5 MG PO (09:31)
[2025-05-22] MEDS: NEURONTIN 100 MG PO ×2 (09:31→15:52)
[2025-05-22] MEDS: LASIX 40 MG IV ×2 (09:32→13:13)
[2025-05-22] MEDS: BACTROBAN 2% OINTMENT 1 APPLIC NASAL (09:32)
[2025-05-22] MEDS: DULCOLAX 10 MG PO (10:16)
--- NOTE | 2025-05-22 10:21 | W.PN.CD ---
Today's Communication / Plan
-
IV diuresis with intensive monitoring, dose increase over yesterday
Impression / Plan
-
74 year old man with prior MV repair s/p recurrent severe MR now POD0 s/p redo MV repair (Porras: reoperative right mini thoracotomy w/ R ax arterial cannulation, radical mitral valve re-repair (Explant of prior 32 Ring, Triangular Resection of P2,
Implant of 30mm Band Annuloplasty, Placement of 4 Goretex [2 to AL and 2 to PL]), MAZE+JAMES clip). Of note, attempted cut down of bilateral groins but unable to thread wire for arterial access and so resorted to axillary cannulation.
Plan:
# severe MR s/p redo MV repair
-Radical mitral valve re-repair (Explant of prior 32 Ring, Triangular Resection of P2, Implant of 30mm Alexander Band Annuloplasty, Placement of 4 Goretex [2 to AL and 2 to PL]); Left Atrial Cryo MAZE and LAAE via suture closed by Dr. Porras on 05/18/25
- wt is up post op, agree with BID IV diuresis today with intensive monitoring, would keep negative 1-2 L
-post op thrombocytopemia noted, plts now rising again, low of 58
- CT in place, removal per CTSurgery
# Afib
-paroxysmal
-in NSR
-Amiodarone started
- resume AC when safe from post operative standpoint
# HTN - chronic
# HLD - resume home simvastatin on discharge
Physical Exam
Vital Signs/Labs
Vital Signs
Temp Pulse Resp BP Pulse Ox
98.7 F 63 17 100/43 96
05/22/25 03:00 05/22/25 03:30 05/22/25 03:00 05/22/25 00:00 05/22/25 08:50
05/21/25 05/22/25 05/23/25
06:59 06:59 06:59
Actual Weight 203 lb 7.787 oz 203 lb 0.732 oz
05/22/25 03:30
05/22/25 03:30
PT 19.1 Sec (11.4-14.6) H 05/18/25 13:53
INR 1.58 05/18/25 13:53
APTT 30.8 Sec (23.4-35.0) 05/18/25 13:53
Magnesium 2.2 mg/dl (1.6-2.3) 05/22/25 03:30
Physical Exam
Constitutional: No acute distress
Cardiovascular: Rhythm & rate is regular, Pedal edema is absent, Systolic murmur absent, Diastolic murmur absent and JVD present (50ydb23 at 90 degrees)
Respiratory: Respiratory effort normal, Wheeze Absent, Rhonchi Absent and Crackles Present (bibasilar)
Neuro/Psych: AO x 3
Data Reviewed
-
Date of Service: May 22, 2025
Medical Decision Making: Review of Case with other Provider (CVICU nursing Pat --IV diuresis today)
EKG: Other (tele sinus)
--- NOTE | 2025-05-22 11:36 | W.DCSUMMARY ---
Discharge Summary
Discharge Data
Date of Admission: 05/18/25
Date of Discharge: 05/22/25
Total time spent discharging patient (in min): 45
-
Pending Results: No
Hospital Course
Primary care physician:
Tatiana Ruiz
Outpatient ships equipment engineer:
Jerad
Inpatient consultants:
CBC, cabinet mounter
Procedures:
Radical mitral valve re-repair (Explant of prior 32 Ring, Triangular Resection of P2, Implant of 30mm Band Annuloplasty, Placement of 4 Goretex [2 to AL and 2 to PL])
Primary Diagnosis:
1. Recurrent Mitral Regurgitation, Symptomatic
Secondary Diagnoses:
1. New paroxysmal atrial relation symptomatic
2. Hypertension
3. Hyperlipidemia
4. Glaucoma
5. Moderately severe pulmonary hypertension
HPI: 74-year-old elevated underwent previous mitral valve repair in 2014. He had recent recurrence of his symptoms and was found to have recurrent mitral valve insufficiency that was severe and was symptomatic. He presented electively on 05/18 for
a redo mitral valve repair with Dr. Porras.
Hospital course:
Patient was electively on 05/18 for a redo mitral valve repair with Dr. Porras. Postoperatively patient returned to the CVICU on Levophed, insulin, and Precedex infusions. Precedex was weaned off and he was extubated that evening. On 05/19
postoperative day 1 patient was weaned off Levophed in the morning and delined. Beta-vlad was held. He tolerated the evening dose. on 05/20 postoperative day 2 patient was noted to have a drop in platelets down to 68 and was given DDAVP. He
was also given Lasix twice daily. On 05/21 postoperative day 3 pleural chest tube and right IJ was removed and aspirin was placed on hold due to thrombocytopenia. On 05/22 postoperative day 4 platelets were uptrending however aspirin and Eliquis
was still on hold. He was diuresed with Lasix twice daily again and given a bowel regimen patient was deemed stable for discharge on amiodarone and Lasix. He will get blood drawn on Wednesday and if platelets continue to improve he will be resumed
on Eliquis only.
Home medication changes:
see below
Discharge Plan
-
Patient Disposition: Home (Routine Discharge)
Discharge Diagnosis/Procedures: redo HP mitral repair, MAZE JAMES oversew
Condition: Fair
Diet: Low Cholesterol and Restrict fluids to 64 oz
Activity: No strenuous activity
Driving Restrictions: No driving for 2 weeks
Bathing Restrictions: OK to Shower
Blood Work: BMP and CBC on
Other Services: Cardiac Rehab
Specialty Instructions: Weigh Daily- Call MD for wt gain/loss 3 lbs overnight/5 lbs in 1 week
Activity Restrictions/Additional Instructions:
ACTIVITY:
-No strenuous activity: no heavy lifting, pushing, pulling anything over 15 pounds for one month
-continue to use stairs as tolerated
WOUND CARE:
-Shower daily. Use soap & water.
-No lotions, creams or powders on incision area.
DIET:
-continue a low fat/low cholesterol diet.
-IF you are diabetic, continue carb controlled diet.
CARDIAC REHAB:
-Please make appointment to start in 5-6 weeks with your local hospital program. (See Cardiac Rehabilitation Discharge Booklet).
SPECIALTY INSTRUCTIONS:
-Weigh yourself daily. Call your physician for any weight gain/loss of 3 lbs overnight or 5 lbs in one week.
-REPORT any clicking noise or uneven appearance of your sternum to your surgeon immediately.
-If you smoke, you are instructed to quit. The [place] smoking hotline phone number is [phone]
Stand Alone Forms: DC Instructions- Cath/EP Lab
Referrals:
[facility] [Outside] - 06/26/25 1:00 pm
Referral Note: Cardiac Rehab Orientation appointment is on June 26 at 1pm.
The Cardiac Rehab gym is located on the first floor of the [facility].
[facility] [Outside]
Karolina Virk CRNP [Specified Professional Personl, Cardiology] - 06/25/25 10:40 am
Cristopher Porras MD [Active, Cardiac Surgery] - 06/18/25 2:15 pm
Tatiana De Anda DO [Family Provider, Family Practice] - in one to two months
Additional Discharge Medication Instructions: You will get repeat blood work on and our office will review those results and let you know if eliquis can be resumed.
Please take your lasix 40mg twice a day for 7 days and then 40mg daily for 3 days.
Please take your amiodarone 200mg twice a day for 14 days and then 200mg daily
Prescriptions:
New
acetaminophen 325 mg Tablet
650 mg PO Q4HPRN PRN (Reason: mild pain,headache,temp >101F ) Qty: 0 0RF
oxycodone 5 mg Tablet
2.5 mg PO Q6HPRN PRN (Reason: moderate to severe pain) Qty: 10 0RF
furosemide [Lasix] 40 mg tablet
40 mg PO BID Qty: 20 0RF
Rx Instructions:
Please day 40mg twice a day for 7 days and then 40mg daily for 3 days
potassium chloride [Klor-Con 10] 10 mEq tablet extended release
20 meq PO DAILY Qty: 14 0RF
Rx Instructions:
please take while on lasix
amiodarone 200 mg tablet
200 mg PO BID Qty: 60 0RF
Rx Instructions:
Please take 200mg twice a day for 14 days and then 200mg daily
Continued
simvastatin 20 mg Tablet
20 mg PO HS
metoprolol tartrate 25 MG tablet
12.5 mg PO BID
Rx Instructions:
take one half tablet twice daily
multivitamin Tablet
1 tab PO DAILY Qty: 0 0RF
latanoprost 0.005 % Drops
1 drp OPHTHALMIC (EYE) HS Qty: 0 0RF
tamsulosin 0.4 mg Capsule
0.4 mg PO HS Qty: 0 0RF
brimonidine [Alphagan P] 0.15 % Drops
1 drp OPHTHALMIC (EYE) Q8H Qty: 0 0RF
cholecalciferol (vitamin D3) [Vitamin D3] 25 mcg (1,000 unit) Capsule
25 mcg PO DAILY Qty: 0 0RF
magnesium oxide 400 mg magnesium Tablet
400 mg PO DAILY Qty: 0 0RF
Held
zinc acetate 50 mg (zinc) Capsule
50 mg PO DAILY Qty: 0 0RF
Hold Instructions: Resume on 06/05/25.
Eliquis 5 mg Tablet
5 mg PO BID Qty: 0 0RF
Hold Instructions: You will get a repeat CBC on and our office will let you know if it can be resumed.
Discontinued
aspirin 81 mg Capsule
81 mg PO DAILY Qty: 0 0RF
Discharge Orders:
Discharge Patient (As Directed); Ordered 05/22/25
Ordered By: Krystina Macias
Care Plan Goals
Care Plan Goals:
Problem: Readiness for enhanced knowledge related to diagnosis and treatment plan
Goal: Understand your diagnosis and treatment plan needs, including medications if applicable.
Instructions: Know your diagnosis, underlying causes and treatment plan options, including medications if applicable. Consult with your health care team to learn about your diagnosis and treatment plan, including medications if applicable.
Discharge Date and Time
Print Language: DJIBOUTIAN
--- NOTE | 2025-05-22 12:01 | CM ---
Reviewed chart. Reviewed with [facility] if they do the blood work at home. [facility] does not do the blood work. [facility] can do the blood draw because he has traditional Medicare Spoke with [facility] to review blood work and when then
can do the blood draw and home visit. [facility] can do the blood draw but the visit would be on the weekend. Reviewed with medical team. Okay for blood work to be drawn on the weekend. Sent referral to [facility]. Met with Mr.
Valdezjason to review options; Reviewed [facility] and going out for the blood work or [facility] doing the blood draw at home. He has opted for the [facility]. Medical work-up in progress. The discharge plan is to return home with his
spouse and [facility] when medically stable.
[2025-05-22] MEDS: ALPHAGAN 0.2% EYE DROPS 1 DROP OPHTH (13:13)
[2025-05-22] MEDS: DULCOLAX 10 MG RECTAL (15:52)
--- NOTE | 2025-05-22 16:23 | PTCARENOTE ---
Pacer wires cut, pt showering. DC instructions explained to pt and his and all questions answered.
== END 2025-05-22 18:13 | disposition home health service (06) | DRG 317 ==
LOC: CVICU 05:15
PROVIDERS: Anesthesiology; Clinical Nurse Specialist Acute Care; Nurse Practitioner; Physician Assistant; Physician Assistant Medical; ADMITTING PHYSICIAN Thoracic Surgery (Cardiothoracic Vascular Surgery); CONSULT PHYSICIAN Internal Medicine Critical Care Medicine; FAMILY PHYSICIAN Family Medicine; OTHER PHYSICIAN Student in an Organized Health Care Education/Training Program
PROC: 02L70ZK Occlusion of Left Atrial Appendage, Open Approach (ICD-10-PCS; 2025-05-18)
PROC: 02UG0JZ Supplement Mitral Valve with Synthetic Substitute, Open Approach (ICD-10-PCS; 2025-05-18)
PROC: 02580ZZ Destruction of Conduction Mechanism, Open Approach (ICD-10-PCS; 2025-05-18)
PROC: B24BZZ4 Ultrasonography of Heart with Aorta, Transesophageal (ICD-10-PCS; 2025-05-18)
PROC: 02NN0ZZ Release Pericardium, Open Approach (ICD-10-PCS; 2025-05-18)
DX: I34.0 Nonrheumatic mitral (valve) insufficiency (principal); D62 Acute posthemorrhagic anemia; J98.11 Atelectasis; E86.1 Hypovolemia; E87.70 Fluid overload, unspecified; D69.59 Other secondary thrombocytopenia; I10 Essential (primary) hypertension; E78.00 Pure hypercholesterolemia, unspecified; H40.9 Unspecified glaucoma; I27.20 Pulmonary hypertension, unspecified; I48.0 Paroxysmal atrial fibrillation; R09.02 Hypoxemia; N40.0 Benign prostatic hyperplasia without lower urinary tract symptoms; G47.33 Obstructive sleep apnea (adult) (pediatric); Z87.891 Personal history of nicotine dependence; Z79.01 Long term (current) use of anticoagulants; Z79.82 Long term (current) use of aspirin
CPT/HCPCS: 36415; 71045; 71046; 80048; 80053; 81003; 81015; 82248; 82330; 82565; 82805; 82810; 82947; 82962; 83036; 83735; 84132; 84302; 84520; 85014; 85018; 85025; 85027; 85049; 85610; 85730; 86850; 86900; 86901; 86920; 87070; 88304; 88305; 93005; 93308; 93312; 93320; 93321; 93325; 94002; G0423; J1250; J2597; J2916; P9047

== ENCOUNTER → 2025-05-24 16:52 | Outpatient (REF) | payer MEDICARE, OTHER, SELFPAY ==
[2025-05-24 17:30] LABS: Blood Urea Nitrogen 23 mg/dl (9-20); Calcium 9.2 mg/dl (8.4-10.2); Carbon Dioxide 30 mmol/L (22-30); Chloride 99 mmol/L (98-107); Glucose 104 mg/dl (70-99); Potassium 3.6 mmol/L (3.5-5.1); Sodium 134 mmol/L (135-145); eGFR > 60.00
[2025-05-24 17:31] LABS: Hematocrit 30.0 % (39.0-52.0); Hemoglobin 10.6 g/dL (13.0-18.0); Mean Corp Hgb Conc. 35.3 g/dL (33.0-37.0); Mean Corpuscular Volume 95.2 fL (80.0-94.0); Platelet Count 128 10^3/uL (130-400); Red Cell Dist. Width 14.5 % (11.5-14.5)
== END ==
LOC: CLAB 16:52
PROVIDERS: ATTENDING PHYSICIAN Thoracic Surgery (Cardiothoracic Vascular Surgery)
DX: I51.9 Heart disease, unspecified (principal)
CPT/HCPCS: 36415; 80048; 85027

== ENCOUNTER 2025-06-01 20:02 | Observation (INO) | payer MEDICARE, OTHER, SELFPAY ==
[2025-06-01] VITALS (11 sets, daily range): BP systolic 105–134; BP diastolic 55–67; BMI 28.2; BMI 26.8
[2025-06-01 12:15] LABS: Hematocrit 32.7 % (39.0-52.0); Hemoglobin 10.9 g/dL (13.0-18.0); Mean Corp Hgb Conc. 33.3 g/dL (33.0-37.0); Mean Corpuscular Volume 91.9 fL (80.0-94.0); Nucleated Red Blood Cells % 0 % (-); Platelet Count 227 10^3/uL (130-400); Red Cell Dist. Width 14.0 % (11.5-14.5)
[2025-06-01 12:59] LABS: ALT (SGPT) 27 U/L (0-50); AST (SGOT) 26 U/L (17-59); Albumin 4.5 g/dl (3.5-5.0); Alkaline Phosphatase 48 U/L (38-126); Blood Urea Nitrogen 28 mg/dl (9-20); Calcium 9.3 mg/dl (8.4-10.2); Carbon Dioxide 29 mmol/L (22-30); Chloride 97 mmol/L (98-107); Estimated Creatinine Clearance 42 ml/min; Glucose 103 mg/dl (70-99); Lipase 102 U/L (23-300); Potassium 3.2 mmol/L (3.5-5.1); Sodium 136 mmol/L (135-145); Total Protein 7.4 g/dl (6.3-8.2); eGFR 47.95
--- NOTE | 2025-06-01 13:42 | ED.GENMED ---
History of Present Illness
<Arlene Arreaga, ASSOCIATE DOCTOR - Last Filed: 06/01/25 13:46>
General
Chief Complaint: Abdominal Symptoms
Source: patient
Exam Limitations: none
Time Seen by Provider: 06/01/25 15:06
Nursing documentation reviewed up to this point in time: agreed with
History of Present Illness
History of Present Illness:
74-year-old male admitted 05/18-05/22 for a radical mitral valve repair by Dr. Porras (had chest tube), also new onset A-fib at that time, history of hypertension HLD, glaucoma, moderately severe pulmonary hypertension.
Presents stating that his close biters get right septal necrotic right
<Vic Blanchard, - Last Filed: 06/01/25 23:35>
History of Present Illness
History of Present Illness:
74-year-old male admitted 05/18-05/22 for a radical mitral valve repair by Dr. Porras (had chest tube), also new onset A-fib at that time, history of hypertension HLD, glaucoma, moderately severe pulmonary hypertension.
Note:
CHIEF COMPLAINT(S)
Difficulty swallowing and gastrointestinal discomfort.
HISTORY OF PRESENT ILLNESS
The patient is a 74-year-old male with a history of mitral valve repair and minimally invasive surgical procedures performed two weeks ago. The patient reports feeling like food gets stuck when swallowing, which he describes as 'starting to start a
lot.' He denies any nausea or vomiting. Recently, the patient has experienced swelling in the groin, where incisions from the previous surgeries are located. Additionally, he reports experiencing constipation, commenting on the difficulty during
bowel movements despite attempts with [id number] laxatives and rectal suppositories. On examination, there was stool present, but no obvious impaction. An x-ray of the abdomen was ordered to rule out any obstruction.
PAST MEDICAL AND SURGICAL HISTORY
Ten years ago, the patient underwent mitral valve repair and a maze procedure to close off one of the heart chambers.
CHRONIC MEDICAL CONDITIONS SIGNIFICANTLY AFFECTING CARE
Post-surgical state following mitral valve repair and maze procedure.
REVIEW OF SYSTEMS
- Gastrointestinal: Difficulty swallowing with a sensation of food sticking. Constipation with difficulty passing stool.
PHYSICAL EXAM
General: Alert, no acute distress.
Skin: Warm, dry. healing surgical incision right upper chest, bilateral groin, midline sternotomy scar
Head: Normocephalic, atraumatic.
Neck: Supple, trachea midline.
Eye Ears, nose, mouth, and throat: Oral mucosa moist.
Cardiovascular: Normal peripheral perfusion, No edema.
Respiratory: Respirations are non-labored.
Gastrointestinal: Abdomen nondistended, rectal examination reveals stool but no impaction.
Back: Normal range of motion, Normal alignment.
Musculoskeletal: Normal ROM, normal strength.
Neurological: Alert and oriented to person, place, time, and situation, No focal neurological deficit observed.
Psychiatric: Cooperative, appropriate mood & affect.
PLAN
- Order abdominal x-ray to evaluate for bowel obstruction.
- Re-evaluate after imaging and discuss further management based on the results.
DIFFERENTIAL DIAGNOSIS
The Differential Diagnosis includes, in no particular order and is not limited to:
1. Esophageal stricture
2. Gastroesophageal reflux disease
3. Achalasia
4. Esophageal spasm
5. Partial bowel obstruction
6. Post-surgical adhesions
7. Incomplete bowel obstruction
8. Diverticulitis
9. Fecal impaction
10. Esophagitis
CARE-UPDATE
06/01/25 - 19:40
The patient will be admitted to cardiothoracic surgery for further management of acute renal failure and hypokinemia related to post-operative complications.
Disposition:
SUMMARY OF ENCOUNTER
The patient is a 74-year-old male who presented with difficulty swallowing, gastrointestinal discomfort, and constipation following mitral valve repair and maze procedure two weeks prior. There was concern for bowel obstruction due to the sensation
of food getting stuck and groin swelling, but there are no signs of bowel obstruction. The patient is also experiencing acute renal failure, hypokalemia, poor oral intake, and gastrointestinal symptoms including nausea and vomiting.
DISPOSITION
Admit
ASSESSMENT
The patient is experiencing complications related to his recent heart surgery, including acute renal failure, hypokalemia, and gastrointestinal symptoms without evidence of bowel obstruction.
MANAGEMENT OF THE PATIENTS CARE WAS DISCUSSED WITH
Dr. Carmona and the cardiothoracic surgery team, who will admit the patient for further management as he is postoperative from mitral valve repair and maze procedure.
PLAN
The plan is to admit the patient under the care of the cardiothoracic surgery team for monitoring and management of acute renal failure and other postoperative complications.
MEDICAL DECISION MAKING
-Complexity of Data Reviewed: Chronic conditions affecting care include mitral valve repair and maze procedure. Differential diagnosis includes esophageal stricture, gastroesophageal reflux disease, achalasia, esophageal spasm, partial bowel
obstruction, post-surgical adhesions, incomplete bowel obstruction, diverticulitis, fecal impaction, and esophagitis.
Category 1: Non-emergency department records and discussions with cardiothoracic surgery team regarding the management of acute postoperative complications.
Category 3: Discussion with Dr. Carmona and the cardiothoracic surgery team regarding admission and further management of postoperative complications.
DIAGNOSIS
- Acute renal failure (N17.9)
- Hypokalemia (E87.6)
- Gastrointestinal symptoms post-surgery without bowel obstruction (K91.89)
Past History
<Arlene Arreaga ASSOCIATE DOCTOR - Last Filed: 06/01/25 13:46>
Past History
ED Past Medical History: CAD and Other (Kidney stones)
ED Past Surgical History: Cardiac
Social History
Tobacco: Non-smoker
Alcohol: None
Drug: None
Personal:
Living: with family
Employment: Retired
Family History
Family History: Other (Noncontributory)
Phy Exam
<Vic Blanchard DO - Last Filed: 06/01/25 23:35>
Physical Exam
Physical Exam:
.
Course
<Arlene Arreaga, ASSOCIATE DOCTOR - Last Filed: 06/01/25 13:46>
Orders/Labs/Results
Orders:
Orders
06/01/25 12:08
Complete Blood Count/With Diff Urgent
Comprehensive Metabolic Panel Urgent
Lipase Urgent
06/01/25 15:19
Obstruct Series W/PA Chest [CR Obstruct Series W/pa Chest] Urgent
Comment:
Reason For Exam: vomiting, constipation
06/01/25 15:20
IV Insert/Care/Rem.- Treatment PRN
0.9% Sodium Chloride 500 ml [Nss] 500 ml IV BOLUS
06/01/25 15:55
Ondansetron Injectable [Zofran] 4 mg .ROUTE .STK-MED ONE
Ondansetron Injectable [Zofran] 4 mg IV NOW STA
06/01/25 17:39
Echo Follow up Study W Dop Stat
Reason for Study: JOSE, 2 weeks s/p MV repair
Potassium Chloride 10% Elixir [KCl Elixir] 40 meq PO NOW STA
06/01/25 18:00
Potassium Chloride [KCl] 40 meq 0.9% Sodium Chloride 250 ml [Nss] 250 ml IV NOW
06/01/25 18:08
Electrocardiogram (*1) Urgent
Reason for Study: Other
Other Reason for Exam: s/p MV repair, new JOSE
Code Status As Directed
Resuscitation Status: Full Code
Acetaminophen [Tylenol] 650 mg PO Q4HPRN PRN
Bisacodyl [Dulcolax] 10 mg RECTAL [id number] PRN
Docusate W/Senna [Senokot-S] 1 tablet PO BIDPRN PRN
Nitroglycerin Sublingual [Nitrostat (Sublingual)] 0.4 mg SL [id number] PRN
Polyethylene Glycol Powder [Miralax] 17 grams PO DAILYPRN PRN
Bedside Glucose Monitoring-ONCE As Directed
Comment: upon arrival to ICU
Bladder Scan As Directed
Follow Bladder Retention/Intermittent Cath Algorithm?: Yes
Frequency: Per Retention Algorithm
Comment: as per intermittent urinary catheter algorithm
Bladder Scan As Directed
Follow Bladder Retention/Intermittent Cath Algorithm?: Yes
PRN if no void in __ hours: 6
Frequency: Per Retention Algorithm
If Bladder Scan Result >: 400
then:: Straight cath
ECG as needed As Directed
ECG as needed for:: Chest Pain
Other reason
Other reason for ECG as needed:: new suspicion of ACS
Comment: At onset of Chest Pain and then Q__H x 2. draw Troponin with each ECG
Additional Instructions:: at onset of chest pain or new suspicion of ACS:
-- ECG and Troponin urgent now
-- then ECG and Troponin with each ECG every 3 hours x total of 3,
including ED or other inpatient ECG/troponins.
Intake/ Output As Directed
Frequency: Per unit guidelines
Intake/ Output As Directed
Frequency: q12h
Notify MD As Directed
Notify physician if: if patient has chest pain or new suspicion of ACS
Notify MD As Directed
Notify physician if: while in ICU level of care:
glucose greater than or equal to 180 mg/dL once, contact provider to initiate Critical
Care Glycemic Protocol Target Range 140-180 mg/dL.
Straight Cath As Directed
Frequency: Per Retention Algorithm
Additional Instructions: as per intermittent urinary catheter algorithm
Straight Cath As Directed
Frequency: Per Retention Algorithm
Additional Instructions: straight cath as needed per acute urinary retention algorithm for 24 hrs
Additional Instructions: for bladder scan greater than 400 mL
Venous Foot Pumps As Directed
Location: Bilateral feet
Vital Signs As Directed
Frequency: Per unit guidelines
Weight As Directed
Frequency: Daily
Weight As Directed
Frequency: Daily
Pulse Ox/spot Check [RESP] Urgent
Quantity: 1
Special Instructions: Pulse Oximetry on admission
Rx Incentive Spirometry [RESP] Routine
Frequency: q1h while awake
06/01/25 18:09
Activity As Directed
Activity Level: Ambulate
Vital Signs As Directed
Frequency: Per unit guidelines
DX Deep Vein Thrombosis Video Routine
06/01/25 18:34
Urinalysis Urgent
Date Specimen was Collected: 06/01/25
Time Specimen was Collected: 18:25
06/01/25 18:57
Admit Patient As Directed
Co-Sign Provider:
Level of Care: Observation services
Assign to:: CVICU- Telemetry
Physician / Group: Chriss Carmona
Diagnosis: JOSE, hypokalemia, constipation
Expected length of stay greater than two midnights?: No
06/01/25 18:58
PRN Pain Medication Management As Directed
May give lesser potent ordered pain med per pt: Yes
preference::
Protocol:: Medication orders for pain may be administered in a
manner that supports deferring to patient preference
when the pt is:
- Requesting an ordered lesser potent pain medication.
Least to most potent pain medications are defined
as: acetaminophen < NSAID < tramadol < opioids
(morphine, oxycodone, hydromorphone).
- Requesting a lesser dose of the same medication IF
ORDERED.
- Requesting a less intrusive route of administration
if both routes are prescribed by the provider (PO <
IV).
06/01/25 19:13
Lactated Ringers [Lr] 250 ml IV BOLUS
06/01/25 20:00
Amiodarone [Pacerone] 200 mg PO BID
Apixaban [Eliquis] 5 mg PO BID
Magnesium Citrate [Citroma] 300 ml PO ONCE ONE
Metoprolol [Lopressor] 12.5 mg PO BID
06/01/25 20:37
Basic Metabolic Panel Urgent
Complete Blood Count/With Diff Urgent
Protime/PTT Urgent
06/01/25 22:00
Atorvastatin [Lipitor] 10 mg PO HS
Brimonidine [Alphagan 0.2% Eye Drops] 1 drop BOTH EYES Q8H
Latanoprost [Xalatan Ophthalmic Solution] 1 drop BOTH EYES HS
Tamsulosin [Flomax] 0.4 mg PO HS
06/02/25 Breakfast
Clear Liquid
At Your Request: Full Participation
Complete Blood Count/No Diff IN AM
06/02/25 08:00
Amiodarone [Pacerone] 200 mg PO DAILY
Cholecalciferol (Vitamin D3) [VITAMIN D3 (cholecalciferol)] 25 mcg PO DAILY
Multivitamin [Theragran] 1 tablet PO DAILY
Abnormal Lab Results
06/01/25
12:08
RBC 3.56 L 10^6/uL
(4.70-6.10)
Hgb 10.9 L g/dL
(13.0-18.0)
Hct 32.7 L %
(39.0-52.0)
Absolute Lymphs (auto) 1.0 L 10^3/uL
(1.2-3.4)
Lymphocytes % 16.6 L %
(20.5-51.1)
Potassium 3.2 L mmol/L
(3.5-5.1)
Chloride 97 L mmol/L
(98-107)
BUN 28 H mg/dl
(9-20)
Creatinine 1.5 H mg/dL
(0.7-1.3)
Glucose 103 H mg/dl
(70-99)
06/01/25 12:08
06/01/25 12:08
Vital Signs
Initial and Last Documented VS:
Initial Vital Signs
Temp Pulse Resp BP Pulse Ox
97.9 F 68 18 107/60 98
06/01/25 11:58 06/01/25 11:58 06/01/25 11:58 06/01/25 11:58 06/01/25 11:58
Last Documented Vital Signs
Temp Pulse Resp BP Pulse Ox
98.5 F 69 18 127/58 96
06/01/25 22:06 06/01/25 22:00 06/01/25 22:06 06/01/25 21:36 06/01/25 23:15
<Vic Blanchard, DO - Last Filed: 06/01/25 23:35>
Orders/Labs/Results
Orders:
Orders
06/01/25 12:08
Complete Blood Count/With Diff Urgent
Comprehensive Metabolic Panel Urgent
Lipase Urgent
06/01/25 15:19
Obstruct Series W/PA Chest [CR Obstruct Series W/pa Chest] Urgent
Comment:
Reason For Exam: vomiting, constipation
06/01/25 15:20
IV Insert/Care/Rem.- Treatment PRN
0.9% Sodium Chloride 500 ml [Nss] 500 ml IV BOLUS
06/01/25 15:55
Ondansetron Injectable [Zofran] 4 mg .ROUTE .STK-MED ONE
Ondansetron Injectable [Zofran] 4 mg IV NOW STA
06/01/25 17:39
Echo Follow up Study W Dop Stat
Reason for Study: JOSE, 2 weeks s/p MV repair
Potassium Chloride 10% Elixir [KCl Elixir] 40 meq PO NOW STA
06/01/25 18:00
Potassium Chloride [KCl] 40 meq 0.9% Sodium Chloride 250 ml [Nss] 250 ml IV NOW
06/01/25 18:08
Electrocardiogram (*1) Urgent
Reason for Study: Other
Other Reason for Exam: s/p MV repair, new JOSE
Code Status As Directed
Resuscitation Status: Full Code
Acetaminophen [Tylenol] 650 mg PO Q4HPRN PRN
Bisacodyl [Dulcolax] 10 mg RECTAL [id number] PRN
Docusate W/Senna [Senokot-S] 1 tablet PO BIDPRN PRN
Nitroglycerin Sublingual [Nitrostat (Sublingual)] 0.4 mg SL [id number] PRN
Polyethylene Glycol Powder [Miralax] 17 grams PO DAILYPRN PRN
Bedside Glucose Monitoring-ONCE As Directed
Comment: upon arrival to ICU
Bladder Scan As Directed
Follow Bladder Retention/Intermittent Cath Algorithm?: Yes
Frequency: Per Retention Algorithm
Comment: as per intermittent urinary catheter algorithm
Bladder Scan As Directed
Follow Bladder Retention/Intermittent Cath Algorithm?: Yes
PRN if no void in __ hours: 6
Frequency: Per Retention Algorithm
If Bladder Scan Result >: 400
then:: Straight cath
ECG as needed As Directed
ECG as needed for:: Chest Pain
Other reason
Other reason for ECG as needed:: new suspicion of ACS
Comment: At onset of Chest Pain and then Q__H x 2. draw Troponin with each ECG
Additional Instructions:: at onset of chest pain or new suspicion of ACS:
-- ECG and Troponin urgent now
-- then ECG and Troponin with each ECG every 3 hours x total of 3,
including ED or other inpatient ECG/troponins.
Intake/ Output As Directed
Frequency: Per unit guidelines
Intake/ Output As Directed
Frequency: q12h
Notify MD As Directed
Notify physician if: if patient has chest pain or new suspicion of ACS
Notify MD As Directed
Notify physician if: while in ICU level of care:
glucose greater than or equal to 180 mg/dL once, contact provider to initiate Critical
Care Glycemic Protocol Target Range 140-180 mg/dL.
Straight Cath As Directed
Frequency: Per Retention Algorithm
Additional Instructions: as per intermittent urinary catheter algorithm
Straight Cath As Directed
Frequency: Per Retention Algorithm
Additional Instructions: straight cath as needed per acute urinary retention algorithm for 24 hrs
Additional Instructions: for bladder scan greater than 400 mL
Venous Foot Pumps As Directed
Location: Bilateral feet
Vital Signs As Directed
Frequency: Per unit guidelines
Weight As Directed
Frequency: Daily
Weight As Directed
Frequency: Daily
Pulse Ox/spot Check [RESP] Urgent
Quantity: 1
Special Instructions: Pulse Oximetry on admission
Rx Incentive Spirometry [RESP] Routine
Frequency: q1h while awake
06/01/25 18:09
Activity As Directed
Activity Level: Ambulate
Vital Signs As Directed
Frequency: Per unit guidelines
DX Deep Vein Thrombosis Video Routine
06/01/25 18:34
Urinalysis Urgent
Date Specimen was Collected: 06/01/25
Time Specimen was Collected: 18:25
06/01/25 18:57
Admit Patient As Directed
Co-Sign Provider:
Level of Care: Observation services
Assign to:: CVICU- Telemetry
Physician / Group: Chriss Carmona
Diagnosis: JOSE, hypokalemia, constipation
Expected length of stay greater than two midnights?: No
06/01/25 18:58
PRN Pain Medication Management As Directed
May give lesser potent ordered pain med per pt: Yes
preference::
Protocol:: Medication orders for pain may be administered in a
manner that supports deferring to patient preference
when the pt is:
- Requesting an ordered lesser potent pain medication.
Least to most potent pain medications are defined
as: acetaminophen < NSAID < tramadol < opioids
(morphine, oxycodone, hydromorphone).
- Requesting a lesser dose of the same medication IF
ORDERED.
- Requesting a less intrusive route of administration
if both routes are prescribed by the provider (PO <
IV).
06/01/25 19:13
Lactated Ringers [Lr] 250 ml IV BOLUS
06/01/25 20:00
Amiodarone [Pacerone] 200 mg PO BID
Apixaban [Eliquis] 5 mg PO BID
Magnesium Citrate [Citroma] 300 ml PO ONCE ONE
Metoprolol [Lopressor] 12.5 mg PO BID
06/01/25 20:37
Basic Metabolic Panel Urgent
Complete Blood Count/With Diff Urgent
Protime/PTT Urgent
06/01/25 22:00
Atorvastatin [Lipitor] 10 mg PO HS
Brimonidine [Alphagan 0.2% Eye Drops] 1 drop BOTH EYES Q8H
Latanoprost [Xalatan Ophthalmic Solution] 1 drop BOTH EYES HS
Tamsulosin [Flomax] 0.4 mg PO HS
06/02/25 Breakfast
Clear Liquid
At Your Request: Full Participation
Complete Blood Count/No Diff IN AM
06/02/25 08:00
Amiodarone [Pacerone] 200 mg PO DAILY
Cholecalciferol (Vitamin D3) [VITAMIN D3 (cholecalciferol)] 25 mcg PO DAILY
Multivitamin [Theragran] 1 tablet PO DAILY
Abnormal Lab Results
06/01/25
12:08
RBC 3.56 L 10^6/uL
(4.70-6.10)
Hgb 10.9 L g/dL
(13.0-18.0)
Hct 32.7 L %
(39.0-52.0)
Absolute Lymphs (auto) 1.0 L 10^3/uL
(1.2-3.4)
Lymphocytes % 16.6 L %
(20.5-51.1)
Potassium 3.2 L mmol/L
(3.5-5.1)
Chloride 97 L mmol/L
(98-107)
BUN 28 H mg/dl
(9-20)
Creatinine 1.5 H mg/dL
(0.7-1.3)
Glucose 103 H mg/dl
(70-99)
06/01/25 12:08
06/01/25 12:08
Vital Signs
Initial and Last Documented VS:
Initial Vital Signs
Temp Pulse Resp BP Pulse Ox
97.9 F 68 18 107/60 98
06/01/25 11:58 06/01/25 11:58 06/01/25 11:58 06/01/25 11:58 06/01/25 11:58
Last Documented Vital Signs
Temp Pulse Resp BP Pulse Ox
98.5 F 69 18 127/58 96
06/01/25 22:06 06/01/25 22:00 06/01/25 22:06 06/01/25 21:36 06/01/25 23:15
<Arlene Arreaga, ASSOCIATE DOCTOR - Last Filed: 06/01/25 13:46>
*Pulse Oximetry
SaO2: 97
Oxygen Mode of Delivery: Room air
<Vic Blanchard DO - Last Filed: 06/01/25 23:35>
*Pulse Oximetry
Patient hypoxic: no
*Critical Care Note
Total Time (30-74mins, 75-104mins- exclusive of procedures): Not Applicable
ED Attending Note
<Arlene Arreaga, ASSOCIATE DOCTOR - Last Filed: 06/01/25 13:46>
-
Portions of this chart may have been created with voice recognition software.� Occasional wrong word or��sound alike� substitutions may have occurred due to the inherent limitations of voice recognition software.
Discharge Plan
Departure
Patient Disposition: Admit
Date of Disposition: 06/01/25
Time of Disposition: 17:37
Admit to: [facility]ICU
Presentation/result/management discussed w/ accepting MD/DO: Dr. Carmona, CT surgery
Patient with high blood pressure during this ER visit?: No
Condition: Fair
Discharge Problem:
Acute hypokalemia, Acute renal failure, Mitral regurgitation, Constipation
Interventions
Interventions:
*Risk Screen - Suicide Last Done: 06/01/25 11:58
*General Assessment Last Done: 06/01/25 11:58
*Neglect/Abuse Screening Last Done: 06/01/25 12:52
*ED- Fall Risk Assessment Last Done: 06/01/25 12:52
*ED COVID-19 Vaccine History Last Done: 06/01/25 12:52
*ED Influenza Vaccine History Last Done: 06/01/25 11:58
*Nursing Disposition Last Done: 06/01/25 21:16
YV-Fjujwi-Nrflwaysjx Assessment Last Done: 06/01/25 15:47
Discharge Date and Time
Discharge Date/Time: 06/01/25 21:16
[2025-06-01] MEDS: NSS 500 IV (15:43)
[2025-06-01] MEDS: ZOFRAN 4 MG IV (15:56)
[2025-06-01] MEDS: KCL 270 MEQ IV (18:18)
--- NOTE | 2025-06-01 18:19 | HPS.HSE ---
Family Physician
-
Family Physician: Tatiana De Anda, DO
Chief Complaint
-
nausea, constipation
History of Present Illness
Mathew Flores is a 74-year-old male known to CT service from recent admission 05/18-05/22 for a radical mitral valve repair by Dr. Porras. He was discharged home 05/22 and had resumed Eliquis reumed on 05/24 after platelet count improved
(70>120k). Patient's called office on Wednesday reporting patient with some nausea and constipation and was directed to increase fluids and stool softener. Patient reported to the emergency room today for 3-day history of anorexia, 1 episode
of vomiting today, and diarrhea with abdominal cramping.
Medical History
Past Medical History
Past Medical History: Reports Arrhythmia (PAF on Eliquis), HTN, Hypercholesterolemia and Other (moderately severe pulmonary hypertension; glaucoma)
Past Surgical History: Reports Cardiac (mitral valve repair (2014), redo mitral valve repair (05/18/25)) and Other (Chronic dissection involving infrarenal abdominal aorta, maximum AP dimension of 2.7 cm; Chronic neck and back pain with injections
of lower back; eye surgery (laser), right ureteroscopy w/ laser lithotripsy, stone extraction, and ureteral stents 2015, ablation 09/2022, colon mass resection )
Social History
Tobacco: Non-smoker
Alcohol: None
Drug: None
Personal:
Living: With Family
Employment: Retired
Family History
Family History: Not pertinent
Allergies / Home Medications
Allergies reflects when Allergies were last updated in [employer].
Home Medications with original date entered in [employer]
Allergy/Medication List:
Allergies
Allergy/AdvReac Type Severity Reaction Status Date / Time
pollen extracts Allergy seasonal Verified 06/01/25 11:58
allergies
Review of Systems
-
History Source: Patient
A 12 point ROS was completed and negative except as noted: Yes
Physical Exam
Vital Signs
Vital Signs
Temp Pulse Resp BP Pulse Ox
98.5 F 69 16 113/60 95
06/01/25 17:14 06/01/25 17:14 06/01/25 17:14 06/01/25 17:11 06/01/25 17:12
Physical Exam
General: Well Developed, Well Nourished and No Apparent Distress
HEENT: NormoCephalic, Anicteric, Moist mucous membranes, PERRLA, Diamond Conjunctivae, Nose Appears Normal, Ears Appear Normal and Neck Nontender
Respiratory: Clear
Cardiac: S1/S2, Regular Rhythm and Other (right anterior thoracotomy site intact w/ecchymosis, no erythema)
Breast: N/A
GI: Soft, Non Tender and Distended
Rectal: Deferred by Provider
Genito-urinary: Deferred by me
Musculoskeletal: No Clubbing, No Cyanosis and No Edema
Skin: Warm and Dry
Neuro: AO x 3, No Motor Deficits and Nonfocal/grossly intact
Hematologic/Lymphatic: No Lymphadenopathy
Psych: Calm
Laboratory Results
-
Laboratory Results
Total Bilirubin 0.7 mg/dl (0.2-1.3) 06/01/25 12:08
AST 26 U/L (17-59) 06/01/25 12:08
ALT 27 U/L (0-50) 06/01/25 12:08
Alkaline Phosphatase 48 U/L (38-126) 06/01/25 12:08
Lipase 102 U/L (23-300) 06/01/25 12:08
Data Reviewed
-
Diagnostic Radiology: Report Reviewed by me and Discussed with Physician
Lab Data: Labs Reviewed by me and Discussed with Physician
Impression/Plan
-
IMPRESSION:74 year old male s/p redo HP MVr #30mm band, neocords, MAZE, JAMES stitch closure� by Dr Porras on 05/18/25, now admitted for 3 day history of nausea, vomited x 1 today, abdominal cramping, diarrhea today. found to have new JOSE, hypokalemia,
and constipation. He will be vented to CVICU telemetry on observation status per discussion with on-call surgeon. Attending surgeon notified of admission.
PLAN:
# JOSE (creat 1.1>1.5)
- 250cc bolus LR
- trend UO
- bladder scan for residual
# Hypokalemia
- repleted with KCL 40mEq IV and 40 mEq oral
- trend BMP
#constipation
- noted on abdominal x-ray
- aggressive bowel regime
# s/p mitral repair
- TTE for LV function, eval fpr pericardial effusion
# PAF
- currently SR on telemetry
- continue Eliquis
- decrease Amio dose to 200mg daily
[2025-06-01] MEDS: KCL ELIXIR 40 MEQ PO (18:30)
[2025-06-01 18:45] LABS: Urine Character Clear (Clear)
[2025-06-01] MEDS: LR 250 IV (20:37)
[2025-06-01 20:43] LABS: Hematocrit 34.1 % (39.0-52.0); Hemoglobin 11.4 g/dL (13.0-18.0); Mean Corp Hgb Conc. 33.4 g/dL (33.0-37.0); Mean Corpuscular Volume 91.9 fL (80.0-94.0); Nucleated Red Blood Cells % 0 % (-); Platelet Count 226 10^3/uL (130-400); Red Cell Dist. Width 14.1 % (11.5-14.5)
[2025-06-01 20:59] LABS: INR 1.47; PT 18.0 Sec (11.4-14.6)
[2025-06-01 21:00] LABS: APTT 29.4 Sec (23.4-35.0)
[2025-06-01 21:30] LABS: Blood Urea Nitrogen 27 mg/dl (9-20); Calcium 9.1 mg/dl (8.4-10.2); Carbon Dioxide 29 mmol/L (22-30); Chloride 99 mmol/L (98-107); Estimated Creatinine Clearance 48 ml/min; Glucose 94 mg/dl (70-99); Sodium 136 mmol/L (135-145); eGFR 56.93
[2025-06-01] MEDS: ELIQUIS 5 MG PO (22:00)
[2025-06-01] MEDS: LOPRESSOR 12.5 MG PO (22:00)
[2025-06-01] MEDS: LIPITOR 10 MG PO (22:00)
[2025-06-01] MEDS: FLOMAX 0.4 MG PO (22:00)
[2025-06-01] MEDS: CITROMA 300 ML PO (22:01)
--- NOTE | 2025-06-01 23:14 | PTCARENOTE ---
received pt from ED into 2260. Pt AAOx4. ambulating to bed. NSR per tele monitor. HR 70s. lungs clear. pox 96% on RA. abd soft non tender. distended. previous surgical incisions intact. PIV intact infusing KCl and LR as ordered. plan of care
discussed and questions encouraged. see worklist and flowsheet for full nursing assessment, VS and nursing interventions.
[2025-06-01] MEDS: COMPAZINE 10 MG IV (23:28)
[2025-06-01] MEDS: ALPHAGAN 0.2% EYE DROPS 1 DROP BOTH EYES (23:28)
[2025-06-01] MEDS: XALATAN OPHTHALMIC SOLUTION 1 DROP BOTH EYES (23:28)
[2025-06-02] VITALS (8 sets, daily range): BP systolic 90–134; BP diastolic 55–97; BMI 26.9
--- NOTE | 2025-06-02 00:01 | W.PN.CT ---
Addendum entered and electronically signed by Chriss Carmona MD 06/02/25 08:38:
I saw and examined the patient.
The PA's note was reviewed and I agree with the note.
Comment:
74M s/p redo-MVRp, CARRIE MCKEON - readmit w/ anorexia and decreased fluid intake, c/o 'food getting stuck' - ok w/ liquids, N/V/D, abdominal cramping, and minor JOSE (creat 1.5 - down to 1.3 today).
ECHO yesterday w/ normal LVEF, normal RV, only trace MR w P/M: 15/01, no effusion
CXR clear
AXR w/o obstruction
- full liquid diet
- S&S eval; ? barium vs. gastrograffin swallow
- bowel regime - 3 BMs post Mg-citrate overnight
- continue current medications
- daily labs
Original Note:
Today's Communication / Plan
-
Impression/Plan:
-Admitted with JOSE/hypokalemia, suspected dehydration with anorexia, decreased fluid intake (reports 2 glasses of water/day), constipation, nausea- got IVF and K repleted. Had BM x3 last night after Mg Citrate.
-Follow am labs- pending
-Difficulty swallowing solids, no problems with liquids- will ask Speech to evaluate
-Recent urinary retention - resolved with starting Flomax. UA is unremarkable
-Paroxysmal a-fib - currently in nsr - continue Apixaban 5 bid
-Echo 06/01 with nl EF 55-60%, no effusion, s/p MV repair with peak/mean gradients across the valve are 14/7 mmHg, trace MR, mild AI. No change from 05/21/25
Assessment / Plan
-
- Admitted 06/02/25 for 3-day history of anorexia, nausea, feeling that solid food gets stuck when swallowing, 1 episode of vomiting today, and diarrhea with abdominal cramping. Pt reported experiencing constipation this week, commenting on the
difficulty during bowel movements despite taking qphe-dyd-rqrwadp laxatives and rectal suppositories. Pt reports having last BM on 05/30. He was started on Flomax this week for urinary retention, which has improved. On admission, pt is not in
any distress and denies abdominal pain. His Cr is elevated from 1.1 to 1.5, K 3.2. Pt received IVF, K (40 iv and 40 po), Mg Citrate, and Compazine.
- Chest/Abdominal XRY revealed improvement in bilateral lower lung atelectasis. Interval resolution of small bilateral pleural effusions. No evidence for obstruction or intraperitoneal free air.
- Echo 06/01/25:
1. Normal left ventricular size and systolic function. LVEF 55-60%.
2. Mildly dilated right ventricle with normal systolic function.
3. S/P Mitral valve repair. The peak/mean gradients across the valve are 14/7 mmHg at 74 bpm. Trace mitral regurgitation.
4. Mild aortic regurgitation.
5. No evidence of pericardial effusion.
6. No change compared to prior echocardiogram on 05/21/2025.
- Recurrent symptomatic Mitral Regurgitation- s/p Reoperative Right mini thoracotomy; Radical mitral valve re-repair; Left Atrial Cryo MAZE and LAAE via suture closed by Dr. Porras on 05/18/25 (discharged 05/22)
- Intraop MATIAS: LVEF preop and postop was 60% with no significant regional wall motion abnormality.
- Previous mitral valve repair in 2014 with recurrent severe mitral valve insufficiency, symptomatic
- New paroxysmal atrial fibrillation, symptomatic- on Eliquis
- Hypertension
- Hyperlipidemia
- Glaucoma
- Moderately severe pulmonary hypertension
- Chronic dissection involving the infrarenal abdominal aorta, maximum AP dimension of 2.7 cm.
- Chronic neck and back pain with injections of lower back without relief recently
- Renal stones/ renal cysts b/l
- Acute postop blood loss anemia
- Acute postop thrombocytopenia to 64K - currently, 226K
- Acute postop atelectasis
Discussed patient care with: Nursing and Care Team
Subjective
-
Date of Service: June 02, 2025
Objective Data
-
Lab Results
06/01/25 20:37
06/01/25 20:37
PT 18.0 Sec (11.4-14.6) H 06/01/25 20:37
INR 1.47 06/01/25 20:37
APTT 29.4 Sec (23.4-35.0) 06/01/25 20:37
Vital Signs
Vital Signs
Temp Pulse Resp BP Pulse Ox
98.5 F 69 18 127/58 96
06/01/25 22:06 06/01/25 22:00 06/01/25 22:06 06/01/25 21:36 06/01/25 23:15
CT Intake/Output/Weight
06/01/25 06/01/25 06/02/25
06:59 18:59 06:59
Intake Total 100 / 515 415 / 515
Output Total 400 / 400
Balance -300 / 115 415 / 115
SaO2: 96
Physical Exam
-
General: Awake and AOx3
Cardiovascular: Regular rate & rhythm, No Murmurs and No Rub
Respiratory: Clear
Sternum: Stable
Incision: Clean, Dry and Intact
Extremities: No Edema
Abdomen: mildly distended, nontender, + bowel sounds
Data Reviewed
-
Lab Results: Results Reviewed
Medications: Active Meds Reviewed
Chest X-Ray: Report Reviewed and Image Reviewed
--- NOTE | 2025-06-02 02:10 | PTCARENOTE ---
Pt reassessed. NSR per tele monitor VSS. Pt had 2 BMs. Voiding spontaneously in toilet. Compazine given for nausea.
[2025-06-02 05:45] LABS: Hematocrit 31.1 % (39.0-52.0); Hemoglobin 10.5 g/dL (13.0-18.0); Mean Corp Hgb Conc. 33.8 g/dL (33.0-37.0); Mean Corpuscular Volume 92.3 fL (80.0-94.0); Platelet Count 223 10^3/uL (130-400); Red Cell Dist. Width 14.0 % (11.5-14.5)
[2025-06-02] MEDS: ALPHAGAN 0.2% EYE DROPS 1 DROP BOTH EYES ×3 (06:07→21:25)
[2025-06-02] MEDS: MAALOX 30 ML PO (06:09)
[2025-06-02 06:10] LABS: Blood Urea Nitrogen 24 mg/dl (9-20); Calcium 9.4 mg/dl (8.4-10.2); Carbon Dioxide 30 mmol/L (22-30); Chloride 103 mmol/L (98-107); Estimated Creatinine Clearance 48 ml/min; Glucose 93 mg/dl (70-99); Magnesium 2.7 mg/dl (1.6-2.3); Potassium 3.6 mmol/L (3.5-5.1); Sodium 138 mmol/L (135-145); eGFR 56.93
--- NOTE | 2025-06-02 07:44 | PTCARENOTE ---
Vital signs captured for previous shift via [employer] monitor.
[2025-06-02] MEDS: KCL ELIXIR 40 MEQ PO (08:25)
[2025-06-02] MEDS: LOPRESSOR 12.5 MG PO ×2 (09:27→20:15)
[2025-06-02] MEDS: PACERONE 200 MG PO (09:28)
[2025-06-02] MEDS: VITAMIN D3 (cholecalciferol) PO (09:28)
[2025-06-02] MEDS: THERAGRAN PO (09:28)
[2025-06-02] MEDS: ELIQUIS 5 MG PO ×2 (09:28→20:15)
--- NOTE | 2025-06-02 09:35 | PTCARENOTE ---
Patient received from assistant casino shift manager resting in bed, AAO X 3, denies pain, denies n/v. NSR via cm, SaO2 @ 96% on RA. All recent procedural sites stable. Assisted oob to bathroom, voided/+BM, am care performed. Patient settled to recliner, updated to
plan of care for the day. See work list for full assessment and interventions performed.
--- NOTE | 2025-06-02 11:49 | PTCARENOTE ---
VS obtained, assessment stable. Patient resting comfortably oob in chair, denies pain.
--- NOTE | 2025-06-02 19:06 | PTOTSP ---
ST Acute Care Evaluation
Pt currently presents with clinical signs of a functional oropharyngeal swallow. No overt s/s of penetration or aspiration noted at bedside upon ingestion of PO intake. Cannot rule out silent aspiration at bedside.
Based on pt's report of symptoms, recent events (sx, pain meds, acute on chronic constipation), and body mechanics (if pt cannot digest food inferiorly, anything he puts in his digestive tract is at an elevated risk for coming back up), suspect pt
likely experienced difficulty initiating swallows and/or globus sensation due to esophageal inflammation from undx or new onset GERD. Pt states that his symptoms have lessened in the setting of rest/discontinuation of solid food over the past day or
so, and no longer felt difficulty initiating swallows with solid food during this evaluation. Nevertheless, esophageal dysfunction is still suspected and should be worked-up further as an OP with GI. Pt also remains an elevated risk for
post-prandial aspiration at this time.
Recommendations:
- Soft bite sized solids with thin liquids; meds as tolerated. Can upgrade to regular solids as tolerated.
- Reflux precautions: HOB upright during all PO intake and for at least 60 minutes after PO intake; avoid reflux-triggering foods/drinks.
- Esophageal motility considerations: Utilize liquid/moisture additives with solids and/or alternate between bites/sips; eat/drink slowly; stop eating/drinking when you feel full - don't over-eat.
- Recommending pt f/u with GI as an OP.
- Skilled DIRECTOR OF PHYSICAL THERAPY services not warranted at this time. DIRECTOR OF PHYSICAL THERAPY to sign off. Please re-consult if needed.
--- NOTE | 2025-06-02 20:00 | PTCARENOTE ---
Assumed care of the patient at 1900. Pt OOB to chair, standby assistance BIB without issues. SR with 1st deg AVB on CM, heart tones audible, pulses palpable, no edema. Lungs clear on RA, SpO2 96%+. Abd SNT, hyperactive BS, appetite improved with BM.
Voiding spontaneously without difficulty into the toilet, urinal use reinforced. Surgical sites from previous procedure CDI, healing well, approximated; RCW sites ecchymotic, no tenderness. L wrist PIVx1 INT. Pt updated on POC, in agreement, call
wilcox within reach, assessment of needs ongoing.
[2025-06-02] MEDS: LIPITOR 10 MG PO (21:25)
[2025-06-02] MEDS: FLOMAX 0.4 MG PO (21:25)
[2025-06-02] MEDS: XALATAN OPHTHALMIC SOLUTION 1 DROP BOTH EYES (21:27)
[2025-06-03 00:28] VITALS: BP 107/49
--- NOTE | 2025-06-03 00:30 | PTCARENOTE ---
Pt up to the bathroom independently without issues, reported voiding x1 - education reinforced on using the urinal for accurate I/Os in the setting of JOSE - patient indicated understanding, urinal placed within reach by the toilet per patient's
preference. VSS, sleeping between care, no acute changes.
--- NOTE | 2025-06-03 00:59 | PTCARENOTE ---
Pt up to the bathroom independently without issues, reported voiding x1 - education reinforced on ur
[2025-06-03 03:55] VITALS: BP 113/58
--- NOTE | 2025-06-03 04:00 | PTCARENOTE ---
Pt OOB to the bathroom ad bren, sleeping between care, no acute complaints, VSS. Call wilcox within reach, assessment of needs ongoing.
--- NOTE | 2025-06-03 04:39 | W.PN.CT ---
Addendum entered and electronically signed by Chriss Carmona MD 06/03/25 09:22:
I saw and examined the patient.
The PA's note was reviewed and I agree with the note.
Comment:
S&S evaluated patient yesterday - OK to swallow - ADAT
Creat 0.9 (down from 1.3)
Encourage PO/IS/ambulation
D/C home today
Original Note:
Today's Communication / Plan
-
-re-admit with JOSE/hypokalemia, suspected dehydration with anorexia, decreased fluid intake, constipation, nausea
-Continued on bowel regimen, no obstruction on XR, BM x3 06/02
-MERCHANDISE SHOPPER eval, now upgraded to soft/bite sized, reflux precautions, outpatient GI follow up. ADAT.
-Recent urinary retention - resolved with starting Flomax. UA is unremarkable
-Paroxysmal a-fib - currently in nsr - continue Apixaban 5 bid, K replaced
-Echo 06/01 with nl EF 55-60%, no effusion, s/p MV repair with peak/mean gradients across the valve are 14/7 mmHg, trace MR, mild AI. No change from 05/21/25
Assessment / Plan
-
- Admitted 06/02/25 for 3-day history of anorexia, nausea, feeling that solid food gets stuck when swallowing, 1 episode of vomiting today, and diarrhea with abdominal cramping. Pt reported experiencing constipation this week, commenting on the
difficulty during bowel movements despite taking drfp-phc-fjuuhoi laxatives and rectal suppositories. Pt reports having last BM on 05/30. He was started on Flomax this week for urinary retention, which has improved. On admission, pt is not in
any distress and denies abdominal pain. His Cr is elevated from 1.1 to 1.5, K 3.2. Pt received IVF, K (40 iv and 40 po), Mg Citrate, and Compazine.
- Chest/Abdominal XRY revealed improvement in bilateral lower lung atelectasis. Interval resolution of small bilateral pleural effusions. No evidence for obstruction or intraperitoneal free air.
- Echo 06/01/25:
1. Normal left ventricular size and systolic function. LVEF 55-60%.
2. Mildly dilated right ventricle with normal systolic function.
3. S/P Mitral valve repair. The peak/mean gradients across the valve are 14/7 mmHg at 74 bpm. Trace mitral regurgitation.
4. Mild aortic regurgitation.
5. No evidence of pericardial effusion.
6. No change compared to prior echocardiogram on 05/21/2025.
- Recurrent symptomatic Mitral Regurgitation- s/p Reoperative Right mini thoracotomy; Radical mitral valve re-repair; Left Atrial Cryo MAZE and LAAE via suture closed by Dr. Porras on 05/18/25 (discharged 05/22)
- Intraop MATIAS: LVEF preop and postop was 60% with no significant regional wall motion abnormality.
- Previous mitral valve repair in 2014 with recurrent severe mitral valve insufficiency, symptomatic
- New paroxysmal atrial fibrillation, symptomatic- on Eliquis
- Hypertension
- Hyperlipidemia
- Glaucoma
- Moderately severe pulmonary hypertension
- Chronic dissection involving the infrarenal abdominal aorta, maximum AP dimension of 2.7 cm.
- Chronic neck and back pain with injections of lower back without relief recently
- Renal stones/ renal cysts b/l
- Acute postop blood loss anemia
- Acute postop thrombocytopenia to 64K - currently, 226K
- Acute postop atelectasis
Subjective
-
Date of Service: June 03, 2025
Objective Data
-
PT 18.0 Sec (11.4-14.6) H 06/01/25 20:37
INR 1.47 06/01/25 20:37
APTT 29.4 Sec (23.4-35.0) 06/01/25 20:37
Vital Signs
Vital Signs
Temp Pulse Resp BP Pulse Ox
97.7 F 59 18 107/49 97
06/03/25 00:25 06/03/25 01:00 06/03/25 00:25 06/03/25 00:28 06/03/25 00:28
CT Intake/Output/Weight
06/02/25 06/02/25 06/03/25
06:59 18:59 06:59
Intake Total 1070 / 1170 960 / 1440 480 / 1440
Output Total 175 / 175
Balance 1070 / 770 785 / 1265 480 / 1265
SaO2: 97
Physical Exam
-
General: Awake and Oriented
Cardiovascular: Regular rate & rhythm and No Murmurs
Respiratory: Clear and Equal
Incision: Clean, Dry and Intact
Extremities: No Edema and No Erythema
Data Reviewed
-
Lab Results: Results Reviewed
Medications: Active Meds Reviewed
ECG: Report Reviewed
[2025-06-03 05:06] LABS: Hematocrit 26.9 % (39.0-52.0); Hemoglobin 8.9 g/dL (13.0-18.0); Mean Corp Hgb Conc. 33.1 g/dL (33.0-37.0); Mean Corpuscular Volume 95.4 fL (80.0-94.0); Platelet Count 176 10^3/uL (130-400); Red Cell Dist. Width 13.9 % (11.5-14.5)
[2025-06-03 05:58] LABS: Blood Urea Nitrogen 18 mg/dl (9-20); Calcium 7.7 mg/dl (8.4-10.2); Carbon Dioxide 26 mmol/L (22-30); Chloride 109 mmol/L (98-107); Estimated Creatinine Clearance 70 ml/min; Glucose 75 mg/dl (70-99); Magnesium 2.4 mg/dl (1.6-2.3); Potassium 3.4 mmol/L (3.5-5.1); Sodium 137 mmol/L (135-145); eGFR > 60.00
[2025-06-03 06:00] VITALS: BMI 26.9
[2025-06-03] MEDS: ALPHAGAN 0.2% EYE DROPS 1 DROP BOTH EYES ×2 (06:43→14:19)
[2025-06-03 08:08] VITALS: BP 117/55
--- NOTE | 2025-06-03 08:30 | PTCARENOTE ---
Patient received from hem marker resting in bed, AAO X 3, denies pain. NSR w/first degree via cm, SaO2 @ 97% on RA. Previous procedural sites stable. Patient assisted oob to chair, breakfast ordered, updated to plan of care for today, in agreement.
See work list for full assessment and interventions performed.
[2025-06-03] MEDS: PACERONE 200 MG PO (08:48)
[2025-06-03] MEDS: ELIQUIS 5 MG PO (08:48)
[2025-06-03] MEDS: LOPRESSOR 12.5 MG PO (08:48)
[2025-06-03] MEDS: KCL 40 MEQ PO ×2 (08:48→11:50)
[2025-06-03] MEDS: THERAGRAN 1 TABLET PO (08:48)
[2025-06-03] MEDS: VITAMIN D3 (cholecalciferol) 25 MCG PO (08:48)
--- NOTE | 2025-06-03 11:12 | W.DCSUMMARY ---
Discharge Summary
Discharge Data
Date of Admission: 06/01/25
Date of Discharge: 06/03/25
-
Pending Results: No
Hospital Course
Primary care physician:
Tatiana Ruiz
Outpatient director retirement:
Jerad
Inpatient consultants:
Procedures:
1. None
Primary Diagnosis:
1. JOSE secondary to 2
2. dehydration
3. constipation with nausea
Secondary Diagnoses:
1. paroxysmal atrial fibrillation
2. Hypertension
3. Hyperlipidemia
4. Glaucoma
5. Moderately severe pulmonary hypertension
HPI: Mathew Flores is a 74-year-old male known to CT service from recent admission 05/18-05/22 for a radical mitral valve repair by Dr. Porras. He was discharged home 05/22 and had resumed Eliquis reumed on 05/24 after platelet count improved
(70>120k). Patient's called office on Wednesday reporting patient with some nausea and constipation and was directed to increase fluids and stool softener. Patient reported to the emergency room today for 3-day history of anorexia, 1 episode
of vomiting today, and diarrhea with abdominal cramping.
Hospital course: Patient was admitted (observation status) to Cardiac Surgery Service. Initial labs revealed a creatinine of 1.5. Abdominal XR showed no evidence of bowel obstruction. Placed on stool softeners (Miralax and Senna +) and given
Magnesium Citrate. He did have multiple bowel movements. He was complaining of having difficulty swallowing solids and Speech therapy evaluated him. He had no pathological impediments to swallowing and was recommended a soft/chopped diet. He
tolerated this well. His creatinine returned to normal at 0.9. He was feeling better and was discharged to home.
Home medication changes:
New medications:
Miralax 17grams daily as needed for constipation.
Docusate with Senna 1 tablet twice a day as needed for constipation.
Discharge Plan
-
Patient Disposition: Home (Routine Discharge)
Discharge Diagnosis/Procedures: JOSE, dehydration, anorexia
Condition: Good
Diet: Low Fat, Low Cholesterol and Chop all food
Driving Restrictions: Not until seen by your Dr
Activity Restrictions/Additional Instructions:
Follow upp with Dr. Porras as scheduled.
ACTIVITY:
-No strenuous activity: no heavy lifting, pushing, pulling anything over 15 pounds for one month
-continue to use stairs as tolerated
DRIVING RESTRICTIONS:
-No driving for one month or until approved by your surgeon
WOUND CARE:
-Shower daily. Use soap & water.
-No lotions, creams or powders on incision area.
DIET:
-continue a low fat/low cholesterol diet.
-IF you are diabetic, continue carb controlled diet.
CARDIAC REHAB:
-Please make appointment to start in 5-6 weeks with your local hospital program. (See Cardiac Rehabilitation Discharge Booklet).
SPECIALTY INSTRUCTIONS:
-Weigh yourself daily. Call your physician for any weight gain/loss of 3 lbs overnight or 5 lbs in one week.
-REPORT any clicking noise or uneven appearance of your sternum to your surgeon immediately.
-If you smoke, you are instructed to quit. The [place] smoking hotline phone number is [phone]
Referrals:
Tatiana De Anda DO [Family Provider, Family Practice]
Prescriptions:
New
polyethylene glycol 3350 17 gram Powder In Packet
17 g PO DAILYPRN PRN (Reason: constipation) Qty: 0 0RF
sennosides-docusate sodium [Senna Plus] 8.6-50 mg Tablet
1 tab PO BIDPRN PRN (Reason: constipation) Qty: 0 0RF
Continued
simvastatin 20 mg Tablet
20 mg PO HS
metoprolol tartrate 25 MG tablet
12.5 mg PO BID
Rx Instructions:
take one half tablet twice daily
acetaminophen 325 mg Tablet
650 mg PO Q4HPRN PRN (Reason: mild pain,headache,temp >101F ) Qty: 0 0RF
oxycodone 5 mg Tablet
2.5 mg PO Q6HPRN PRN (Reason: moderate to severe pain) Qty: 10 0RF
multivitamin Tablet
1 tab PO DAILY Qty: 0 0RF
latanoprost 0.005 % Drops
1 drp OPHTHALMIC (EYE) HS Qty: 0 0RF
tamsulosin 0.4 mg Capsule
0.4 mg PO HS Qty: 0 0RF
brimonidine [Alphagan P] 0.15 % Drops
1 drp OPHTHALMIC (EYE) Q8H Qty: 0 0RF
cholecalciferol (vitamin D3) [Vitamin D3] 25 mcg (1,000 unit) Capsule
25 mcg PO DAILY Qty: 0 0RF
Eliquis 5 mg Tablet
5 mg PO BID Qty: 0 0RF
magnesium oxide 400 mg magnesium Tablet
400 mg PO DAILY Qty: 0 0RF
Changed
amiodarone 200 mg tablet
200 mg PO DAILY Qty: 60 0RF
Rx Instructions:
05/22/25: Please take 200mg twice a day for 14 days and then 200mg daily
Held
zinc acetate 50 mg (zinc) Capsule
50 mg PO DAILY Qty: 0 0RF
Hold Instructions: Resume on 05/06/25. Resume on 06/05/25
Discontinued
potassium chloride [Klor-Con 10] 10 mEq tablet extended release
20 meq PO DAILY Qty: 14 0RF
Rx Instructions:
please take while on lasix
furosemide [Lasix] 40 mg tablet
40 mg PO DAILY
Rx Instructions:
05/22/25: Please day 40mg twice a day for 7 days and then 40mg daily for 3 days
Discharge Orders:
Discharge Patient (As Directed); Ordered 06/03/25
Ordered By: Sohail Bertrand
Discharge Date and Time
Print Language: GREENLANDIC
[2025-06-03 11:48] VITALS: BP 111/51
--- NOTE | 2025-06-03 11:53 | PTCARENOTE ---
VS obtained, assessment stable. Patient resting oob in chair, watching TV. Denies pain.
[2025-06-03 14:57] VITALS: BP 115/73
--- NOTE | 2025-06-03 16:21 | PTCARENOTE ---
Patient set up to shower, completed independently. BRI Sherman, to room to assess L groin site -patient denies pain, states 'lump' comes and goes. PIV removed. Discharge instructions thoroughly reviewed w/patient and spouse, all questions
answered. Patient transported to waiting vehicle for d/c home.
== END 2025-06-03 16:30 | disposition home or self-care (01) ==
LOC: CVICU 20:02
PROVIDERS: Emergency Medicine; Nurse Practitioner; Physician Assistant Medical; ADMITTING PHYSICIAN Thoracic Surgery (Cardiothoracic Vascular Surgery); EMERGENCY PHYSICIAN Emergency Medicine; FAMILY PHYSICIAN Family Medicine
DX: N17.9 Acute kidney failure, unspecified (principal); I48.0 Paroxysmal atrial fibrillation; I10 Essential (primary) hypertension; E87.6 Hypokalemia; K59.00 Constipation, unspecified; Z79.01 Long term (current) use of anticoagulants; Z79.899 Other long term (current) drug therapy; R11.0 Nausea; H40.9 Unspecified glaucoma; I27.20 Pulmonary hypertension, unspecified; E86.0 Dehydration; I25.10 Atherosclerotic heart disease of native coronary artery without angina pectoris
CPT/HCPCS: 74022; 80048; 80053; 81003; 83690; 83735; 85025; 85027; 85610; 85730; 92610; 93005; 93308; 93321; 93325; 96365; 96375; 99285; G0378

== ENCOUNTER 2025-07-03 08:30 | Outpatient (RCR) | payer MEDICARE, OTHER, SELFPAY | END 2025-07-03 23:59 | disposition home or self-care (01) | LOC: CRHB 08:30 | PROVIDERS: ATTENDING PHYSICIAN Internal Medicine Cardiovascular Disease; FAMILY PHYSICIAN Family Medicine | DX: Z95.2 Presence of prosthetic heart valve (principal) | CPT/HCPCS: G0422; G0423 ==